=== PATIENT | female | born 1935 | race Caucasian/White ===

== ENCOUNTER 2024-06-15 09:11 | Emergency (ER) | payer MEDICARE, OTHER, SELFPAY ==
[2024-06-15 09:15] VITALS: BP 156/97
[2024-06-15 09:16] VITALS: BMI 30.6
[2024-06-15 09:20] LABS: Glucose - Point of Care 109 mg/dl (70-99)
--- NOTE | 2024-06-15 09:44 | ED.GENMED ---
History of Present Illness
General
Chief Complaint: Blood Sugar Problem
Source: patient and ambulance crew
Time Seen by Provider: 06/15/24 09:38
History of Present Illness
History of Present Illness:
89-year-old female with past medical history of diabetes managed with Lantus only at nighttime, hypertension presenting to the emergency department via EMS for evaluation after patient was found by family this morning very weak, last night was cold
and did not feel well, EMS found the patient's blood glucose to be 30 and provided her with an IV bolus of glucose as well as patient ate a peanut butter and jelly sandwich. Patient reports at time of my examination she feels much better and has no
current concerns. Patient denies any urinary symptoms, bowel changes, nausea, vomiting, chest pain, shortness of breath. She notes that she does not have a glucometer or monitor her blood sugars as she does not like pricking her fingers. Patient
is adamant her only insulin that she uses is the Lantus at nighttime. She reports she was at her primary care provider 2 weeks ago and yesterday states that they did not tell her about any complications with her diabetes.
Past History
Past History
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
ED Past Surgical History: Appendectomy, Gynecological and Orthopedic
Social History
Tobacco: Non-smoker
Alcohol: None
Drug: None
Personal:
Living: with family
Review of Systems
Review of Systems
All Other Systems: ROS reviewed and negative except as documented in HPI and ROS
Phy Exam
Physical Exam
Physical Exam:
GENERAL: Alert , in no apparent distress
HEAD: NCAT
EYE: conjunctiva clear
NECK: Supple
ENT: o/p clr, mmm.
CARDIAC: Regular rate and rhythm
LUNGS: Clear breath sounds bilaterally, no acute respiratory distress, no wheezes/rales/rhonchi
NEUROLOGICAL: Alert and oriented
SKIN: Warm and dry, skin intact.
MUSCULOSKELETAL: well perfused.
PSYCH: Normal and appropriate interaction.
Scores
Heart Failure Risk
Heart Failure Risk Score: Not Applicable
Heart Score for Chest Pain Patients
STEMI patient?: Not applicable
Withdrawal Assessment of Alcohol
Withdrawal Assessment Completed?: Not applicable
Course
Orders/Labs/Results
Orders:
Orders
06/15/24 09:32
Basic Metabolic Panel Urgent
Complete Blood Count/With Diff Urgent
Abnormal Lab Results
06/15/24 06/15/24 06/15/24
09:19 09:32 11:54
Lymphocytes % 17.3 L %
(20.5-51.1)
Sodium 127 L mmol/L
(135-145)
Chloride 95 L mmol/L
(98-107)
BUN 19 H mg/dl
(7-17)
Glucose 106 H mg/dl
(70-99)
POC Glucose 109 H mg/dl 128 H mg/dl
(70-99) (70-99)
06/15/24 09:32
06/15/24 09:32
Vital Signs
Initial and Last Documented VS:
Initial Vital Signs
Temp Pulse Resp BP Pulse Ox
97.7 F 72 16 156/97 98
06/15/24 09:15 06/15/24 09:15 06/15/24 09:15 06/15/24 09:15 06/15/24 09:15
Last Documented Vital Signs
Temp Pulse Resp BP Pulse Ox
97.7 F 74 23 156/97 97
06/15/24 09:15 06/15/24 11:45 06/15/24 11:45 06/15/24 09:15 06/15/24 11:45
MDM/Problems Addressed
Differential Diagnosis Includes:
Hypoglycemia secondary to insulin, less concern for infectious etiology, electrolyte disturbance
MDM/Problems Addressed:
89-year-old female presenting emergency department for evaluation of generalized weakness, found to be hypoglycemic by EMS, treated with glucose and peanut butter and jelly on the way to the hospital. Fingerstick here was 109 and patient is without
any specific complaints presently. I suspect her symptoms are most likely related to hypoglycemia secondary to her insulin. Will monitor patient in the ER. I did offer diabetes education consultation for possible glucometer or other monitoring
devices however patient seemed hesitant but states she would think about it back to us with her answer.
Chronic conditions affecting care: DM
Acute Exacerbation and/or Progression of Chronic Illness: DM
*Pulse Oximetry
Patient hypoxic: no
*Critical Care Note
Total Time (30-74mins, 75-104mins- exclusive of procedures): Not Applicable
Data Reviewed
Review of Other/Old Records Reveals: Labs
Patient Management
Escalation/DeEscalation of care consider admission/obs:
On multiple reevaluations patient continues to feel well, blood sugars remain greater than 100 and she is tolerating p.o. Patient's and daughter are at the bedside. Daughter was in contact with patient's primary care provider and they were
able to get patient a continuous glucose monitor which will be at their house later this afternoon. Primary care also decreased patient's Lantus from 70 units to 35 and will continue to follow-up with the patient. Family feels comfortable taking
the patient home. Aware of return precautions to the ER.
ED Attending Note
-
Portions of this chart may have been created with voice recognition software.� Occasional wrong word or��sound alike� substitutions may have occurred due to the inherent limitations of voice recognition software.
Discharge Plan
Departure
Patient Disposition: Home (Routine Discharge)
Date of Disposition: 06/15/24
Time of Disposition: 12:11
Patient with high blood pressure during this ER visit?: Yes
Discharge Problem:
Hypoglycemia due to insulin
Instructions: Low Blood Sugar, Adult ED
Prescriptions:
No Action
lisinopril [Zestril] 20 MG tablet
40 mg PO DAILY
simvastatin 20 MG tablet
20 mg PO QPM
levothyroxine 125 MCG tablet
125 mcg PO DAILY
hydrochlorothiazide [Microzide] 12.5 MG capsule
12.5 mg PO DAILY
insulin glargine [Lantus Solostar U-100 Insulin] 300 UNITS/3 ML insulin pen
68 units SC HS
acetaminophen 325 MG tablet
650 mg PO Q4HPRN PRN (Reason: pain)
magnesium hydroxide 30 ML suspension
30 ml PO DAILY PRN (Reason: constipation)
enoxaparin 40 MG/0.4 ML syringe
40 mg SQ DAILY
Referrals:
Kev Croft MD [Family Provider] -
Interventions
Interventions:
*Risk Screen - Suicide Last Done: 06/15/24 10:01
*General Assessment Last Done: 06/15/24 12:33
*Neglect/Abuse Screening Last Done: 06/15/24 10:01
ED- Fall Risk Assessment Last Done: 06/15/24 12:33
*ED COVID-19 Vaccine History Last Done: 06/15/24 09:16
*Nursing Disposition Last Done: 06/15/24 12:33
ED- Neurological Assessment Last Done: 06/15/24 10:00
Discharge Date and Time
Discharge Date/Time: 06/15/24 12:34
Print Language: K[place]IL[place]
[2024-06-15 09:46] LABS: % Basophils 0.4 % (0-2); % Eosinophils 0.5 % (0-6); % Immature Granulocytes 0.4 % (0-0.5); % Lymphocytes 17.3 % (20.5-51.1); % Monocytes 7.8 % (1.7-9.3); % Neutrophils 73.6 % (42.2-75.2); Absolute Lymphocytes 1.4 10^3/uL (1.2-3.4); Absolute Monocytes 0.6 10^3/uL (0.1-0.6); Absolute Neutrophils 5.8 10^3/uL (1.4-6.5); Hematocrit 41.4 % (37.0-47.0); Hemoglobin 14.4 g/dL (12.0-16.0); Mean Corp Hgb Conc. 34.8 g/dL (33.0-37.0); Mean Corpuscular Hgb 29.8 pg (27.0-31.0); Mean Corpuscular Volume 85.5 fL (81.0-99.0); Mean Platelet Volume 9.7 fL (7.4-10.4); Nucleated Red Blood Cells % 0 %; Platelet Count 228 10^3/uL (130-400); Red Blood Cell Count 4.84 10^6/uL (4.20-5.40); Red Cell Dist. Width 13.8 % (11.5-14.5); White Blood Cell Count 7.9 10^3/uL (4.8-10.8)
[2024-06-15 09:57] LABS: Blood Urea Nitrogen 19 mg/dl (7-17); Calcium 9.1 mg/dl (8.4-10.2); Carbon Dioxide 26 mmol/L (22-30); Chloride 95 mmol/L (98-107); Estimated Creatinine Clearance 68 ml/min; Glucose 106 mg/dl (70-99); Sodium 127 mmol/L (135-145); eGFR > 60.00
[2024-06-15 11:55] LABS: Glucose - Point of Care 128 mg/dl (70-99)
== END 2024-06-15 12:34 | disposition home or self-care (01) ==
LOC: EMR 09:11
PROVIDERS: EMERGENCY PHYSICIAN Student in an Organized Health Care Education/Training Program; FAMILY PHYSICIAN Internal Medicine
DX: E11.649 Type 2 diabetes mellitus with hypoglycemia without coma (principal); T38.3X5A Adverse effect of insulin and oral hypoglycemic [antidiabetic] drugs, initial encounter; Z79.4 Long term (current) use of insulin; I10 Essential (primary) hypertension
CPT/HCPCS: 99283; 80048; 82962; 85025

== ENCOUNTER 2024-06-18 08:38 | Emergency (ER) | payer MEDICARE, OTHER, SELFPAY ==
[2024-06-18 08:41] VITALS: BP 164/80
--- NOTE | 2024-06-18 09:51 | ED.GENMED ---
Addendum entered and electronically signed by Artem Mojica PA-C 06/21/24 11:53:
Urine culture positive, however clinical presentation not c/w UTI, likely asymptomatic bacteruria
Original Note:
History of Present Illness
<Mynor Juárez MD, Resident - Last Filed: 06/18/24 14:50>
General
Chief Complaint: Back Pain
Source: patient and family
Time Seen by Provider: 06/18/24 09:00
History of Present Illness
History of Present Illness:
89-year-old female, Ms. Cheryl Ro with past medical history of hypertension, hyperlipidemia, insulin-dependent diabetes mellitus, hypothyroidism presented to the ER reporting back pain and constipation. History is taken from the patient and
family (daughter and who accompanied her to the ER). Patient reports her back pain started 2 months ago, gradual in onset, was constant, sitting and lying down in supine position worsens the pain. Pain is better with walking and lying down
on the side. Her back pain has become worse in the past 10 days reports it as 10/10, she was taking prescription strength Tylenol without much help. Patient also reports having bilateral burning radiating pain down up to the feet. Patient reports
having lower extremity numbness occasionally and mild weakness but no tingling.
Patient reports having constipation since a couple of months, used to take [id number] Colace, MiraLAX and it has worsened over time. Patient mentions that she did not have a bowel movement from the past 18 days, but she was able to pass
flatus. Patient tried MiraLAX, Dulcolax, Fleet enemas without much help. Patient reports having decreased appetite, no nausea/vomiting/fever/chills/abdominal pain, no history of hematemesis, melena, blood in the stools. No history of
bladder/bowel incontinence, altered perianal sensation.
Past History
<Mynor Juárez MD, Resident - Last Filed: 06/18/24 14:50>
Past History
ED Past Medical History: HTN, IDDM and Hypothyroidism
ED Past Surgical History: Appendectomy, Gynecological (Hysterectomy and bilateral salpingo-oophorectomy) and Orthopedic
Social History
Tobacco: Non-smoker
Alcohol: None
Drug: None
Personal:
Living: with family
Employment: Retired
Phy Exam
<Mynor Juárez MD, Resident - Last Filed: 06/18/24 14:50>
Physical Exam
Physical Exam:
GEN: Patient is apprehensive due to pain
Eyes: PERRLA, EOMs intact, no scleral icterus
HENT: NCAT, oral mucosa moist, no JVD, no cervical adenopathy.
Lungs: CTAB, no wheezes, rales, rhonchi, normal chest wall excursion
Cardiac: RRR, no M/R/G, no peripheral edema. Radial pulses 2+ bilat
Abdomen: S, NT, ND, NABS, no masses or hepatosplenomegaly
Neuro: AO x 3, no focal deficits to BUE/BLE, normal sensation throughout
MSK: Swelling to the L knee from recent fall.
Skin: No rashes, petechiae. Normal color, no pallor or jaundice.
Psych: Calm, cooperative, proper hygiene
Course
<Mynor Juárez MD, Resident - Last Filed: 06/18/24 14:50>
Orders/Labs/Results
Orders:
Orders
06/18/24 10:06
CR Lumbar Spine Comp Min 4 Vw* Urgent
Comment:
Reason For Exam: trauma
06/18/24 10:07
Iohexol [Omnipaque] See Protocol PO NOW STA
06/18/24 10:08
CT Abd/pel W Iv And Oral Contr Urgent
Comment:
Reason For Exam: abdominal pain w distention
Dexamethasone Sod Phosphate [Decadron] 10 mg IV NOW STA
Ketorolac [Toradol] 15 mg IV NOW STA
06/18/24 11:00
Complete Blood Count/With Diff Urgent
Comprehensive Metabolic Panel Urgent
Magnesium Urgent
06/18/24 12:06
Urinalysis Reflex To Culture Urgent
Date Specimen was Collected: 06/18/24
Time Specimen was Collected: 12:04
Urine Microscopic Reflex Cult Urgent
Urine Culture Urgent
SASKIA Source: U
Specimen Description:
Date Specimen was Collected: 06/18/24
Time Specimen was Collected: 12:04
06/18/24 14:08
Magnesium Citrate [Citroma] 300 ml PO ONCE ONE
Abnormal Lab Results
06/18/24 06/18/24
11:00 12:06
Absolute Monos (auto) 0.8 H 10^3/uL
(0.1-0.6)
Lymphocytes % 20.4 L %
(20.5-51.1)
Sodium 127 L mmol/L
(135-145)
Chloride 91 L mmol/L
(98-107)
BUN 20 H mg/dl
(7-17)
Glucose 107 H mg/dl
(70-99)
Total Bilirubin 1.8 H mg/dl
(0.2-1.3)
Urine Ketones 2+ A
(Negative)
Leukocyte Esterase Rfl Trace A
(Negative)
Urine WBC (Reflex) 11-15 A /HPF
(0-5)
Urine Bacteria (Reflex) Many A
(Negative)
06/18/24 11:00
06/18/24 11:00
Vital Signs
Initial and Last Documented VS:
Initial Vital Signs
Temp Pulse Resp BP Pulse Ox
98.1 F 75 20 164/80 98
06/18/24 08:41 06/18/24 08:41 06/18/24 08:41 06/18/24 08:41 06/18/24 08:41
Last Documented Vital Signs
Temp Pulse Resp BP Pulse Ox
98.1 F 79 16 171/82 98
06/18/24 08:41 06/18/24 14:28 06/18/24 14:28 06/18/24 14:28 06/18/24 14:28
<Bernardo Moralez MD - Last Filed: 06/18/24 14:52>
Orders/Labs/Results
Orders:
Orders
06/18/24 10:06
CR Lumbar Spine Comp Min 4 Vw* Urgent
Comment:
Reason For Exam: trauma
06/18/24 10:07
Iohexol [Omnipaque] See Protocol PO NOW STA
06/18/24 10:08
CT Abd/pel W Iv And Oral Contr Urgent
Comment:
Reason For Exam: abdominal pain w distention
Dexamethasone Sod Phosphate [Decadron] 10 mg IV NOW STA
Ketorolac [Toradol] 15 mg IV NOW STA
06/18/24 11:00
Complete Blood Count/With Diff Urgent
Comprehensive Metabolic Panel Urgent
Magnesium Urgent
06/18/24 12:06
Urinalysis Reflex To Culture Urgent
Date Specimen was Collected: 06/18/24
Time Specimen was Collected: 12:04
Urine Microscopic Reflex Cult Urgent
Urine Culture Urgent
SAKSIA Source: U
Specimen Description:
Date Specimen was Collected: 06/18/24
Time Specimen was Collected: 12:04
06/18/24 14:08
Magnesium Citrate [Citroma] 300 ml PO ONCE ONE
Abnormal Lab Results
06/18/24 06/18/24
11:00 12:06
Absolute Monos (auto) 0.8 H 10^3/uL
(0.1-0.6)
Lymphocytes % 20.4 L %
(20.5-51.1)
Sodium 127 L mmol/L
(135-145)
Chloride 91 L mmol/L
(98-107)
BUN 20 H mg/dl
(7-17)
Glucose 107 H mg/dl
(70-99)
Total Bilirubin 1.8 H mg/dl
(0.2-1.3)
Urine Ketones 2+ A
(Negative)
Leukocyte Esterase Rfl Trace A
(Negative)
Urine WBC (Reflex) 11-15 A /HPF
(0-5)
Urine Bacteria (Reflex) Many A
(Negative)
06/18/24 11:00
06/18/24 11:00
Vital Signs
Initial and Last Documented VS:
Initial Vital Signs
Temp Pulse Resp BP Pulse Ox
98.1 F 75 20 164/80 98
06/18/24 08:41 06/18/24 08:41 06/18/24 08:41 06/18/24 08:41 06/18/24 08:41
Last Documented Vital Signs
Temp Pulse Resp BP Pulse Ox
98.1 F 79 16 171/82 98
06/18/24 08:41 06/18/24 14:28 06/18/24 14:28 06/18/24 14:28 06/18/24 14:28
<Mynor Juárez MD, Resident - Last Filed: 06/18/24 14:50>
*Critical Care Note
Total Time (30-74mins, 75-104mins- exclusive of procedures): Not Applicable
ED Attending Note
<Mynor Juárez MD, Resident - Last Filed: 06/18/24 14:50>
-
Portions of this chart may have been created with voice recognition software.� Occasional wrong word or��sound alike� substitutions may have occurred due to the inherent limitations of voice recognition software.
<Bernardo Moralez MD - Last Filed: 06/18/24 14:52>
ED Attending Note
Patient seen and examined by attending physician: Yes
ED Attending Note:
Patient presents to ED secondary to worsening lower back pain radiating down both legs over the past 2 weeks. Patient denies any pain at rest, but worse weightbearing and during ambulation. Denies fever or chills. Denies direct trauma. Denies
loss of sensation or weakness. Denies urinary or bowel incontinence. In addition, patient is reporting difficulty with bowel movements despite taking outpatient medications over the past 2 weeks. Denies abdominal pain however. Denies nausea or
vomiting. Denies recent change in medications or diet.
Patient with an unremarkable workup in ED, including blood work and CT scan, as well as x-ray. Otherwise, patient remains afebrile, hemodynamically stable, and neurologically intact. On repeat abdominal exam, abdomen is soft and nontender.
Patient will be discharged home with recommendation to increase fluid intake, diet modification, as well as outpatient medication, i.e. MiraLAX along with magnesium citrate.
Patient and family expressed understanding at time of discharge. Will return to ED with worsening symptoms.
Discharge Plan
Departure
Patient Disposition: Home (Routine Discharge)
Date of Disposition: 06/18/24
Time of Disposition: 14:09
Patient with high blood pressure during this ER visit?: Yes
Discharge Problem:
Back pain, Constipation
Instructions: Constipation, Adult (DC), Constipation, Adult ED
Prescriptions:
New
tramadol 50 mg tablet
50 mg PO Q8H PRN (Reason: Pain) Qty: 12 0RF
methylprednisolone [Medrol (Damon)] 4 mg tablets,dose pack
4 mg PO DAILY Qty: 21 0RF
No Action
lisinopril [Zestril] 20 MG tablet
40 mg PO DAILY
simvastatin 20 MG tablet
20 mg PO QPM
levothyroxine 125 MCG tablet
125 mcg PO DAILY
hydrochlorothiazide [Microzide] 12.5 MG capsule
12.5 mg PO DAILY
insulin glargine [Lantus Solostar U-100 Insulin] 300 UNITS/3 ML insulin pen
68 units SC HS
acetaminophen 325 MG tablet
650 mg PO Q4HPRN PRN (Reason: pain)
magnesium hydroxide 30 ML suspension
30 ml PO DAILY PRN (Reason: constipation)
enoxaparin 40 MG/0.4 ML syringe
40 mg SQ DAILY
Referrals:
Kev Croft MD [Family Provider] -
Activity Restrictions/Additional Instructions:
As discussed, please follow-up with your primary care physician for reevaluation. Your prescription has been sent electronically to [facility] pharmacy in [place]. Please consider return to ED with worsening symptoms.
Interventions
Interventions:
*Risk Screen - Suicide Last Done: 06/18/24 08:41
*General Assessment Last Done: 06/18/24 08:41
*Neglect/Abuse Screening Last Done: 06/18/24 08:41
*Nursing Disposition Last Done: 06/18/24 14:37
UJ-Gzijnc-Soyylomgcs Assessment Last Done: 06/18/24 09:09
ED-Musculoskeletal Assessment Last Done: 06/18/24 09:09
Discharge Date and Time
Discharge Date/Time: 06/18/24 14:37
Print Language: [place]
[2024-06-18] MEDS: DECADRON 10 MG IV (10:50)
[2024-06-18] MEDS: TORADOL 15 MG IV (10:50)
[2024-06-18] MEDS: OMNIPAQUE 50 ML PO (10:51)
[2024-06-18 11:06] LABS: % Basophils 0.7 % (0-2); % Eosinophils 1.4 % (0-6); % Immature Granulocytes 0.5 % (0-0.5); % Lymphocytes 20.4 % (20.5-51.1); % Monocytes 8.7 % (1.7-9.3); % Neutrophils 68.3 % (42.2-75.2); Absolute Basophils 0.1 10^3/uL (0-0.2); Absolute Eosinophils 0.1 10^3/uL (0-0.7); Absolute Lymphocytes 1.8 10^3/uL (1.2-3.4); Absolute Monocytes 0.8 10^3/uL (0.1-0.6); Absolute Neutrophils 5.9 10^3/uL (1.4-6.5); Hematocrit 38.7 % (37.0-47.0); Mean Corp Hgb Conc. 36.2 g/dL (33.0-37.0); Mean Corpuscular Hgb 30.2 pg (27.0-31.0); Mean Corpuscular Volume 83.6 fL (81.0-99.0); Mean Platelet Volume 9.9 fL (7.4-10.4); Nucleated Red Blood Cells % 0 %; Platelet Count 218 10^3/uL (130-400); Red Blood Cell Count 4.63 10^6/uL (4.20-5.40); Red Cell Dist. Width 13.7 % (11.5-14.5); White Blood Cell Count 8.6 10^3/uL (4.8-10.8)
[2024-06-18 11:23] LABS: ALT (SGPT) 33 U/L (0-35); AST (SGOT) 29 U/L (14-36); Albumin 4.7 g/dl (3.5-5.0); Alkaline Phosphatase 58 U/L (38-126); Blood Urea Nitrogen 20 mg/dl (7-17); Calcium 9.8 mg/dl (8.4-10.2); Carbon Dioxide 28 mmol/L (22-30); Chloride 91 mmol/L (98-107); Glucose 107 mg/dl (70-99); Magnesium 1.8 mg/dl (1.6-2.3); Potassium 4.8 mmol/L (3.5-5.1); Sodium 127 mmol/L (135-145); Total Bilirubin 1.8 mg/dl (0.2-1.3); Total Protein 6.9 g/dl (6.3-8.2); eGFR > 60.00
[2024-06-18 12:04] VITALS: BP 177/68
[2024-06-18 12:22] LABS: Urine Albumin Trace (Neg - Trace); Urine Bilirubin Negative (Negative); Urine Character Very Cloudy (Clear); Urine Color Yellow; Urine Glucose Negative (Negative); Urine Ketone 2+ (Negative); Urine Leukocyte Trace (Negative); Urine Nitrite Negative (Negative); Urine Occult Blood Negative (Negative); Urine Urobilinogen 1+ (Neg - 1+)
[2024-06-18 12:31] LABS: Urine Urothelial Cell 16-20 /LPF (FEW)
[2024-06-18 12:32] LABS: Urine Red Blood Cell 0-2 /HPF (0-2)
[2024-06-18 12:34] LABS: Urine Bacteria Many (Negative)
[2024-06-18] MEDS: CITROMA 300 ML PO (14:18)
[2024-06-18 14:28] VITALS: BP 171/82
== END 2024-06-18 14:37 | disposition home or self-care (01) ==
LOC: EMR 08:38
PROVIDERS: EMERGENCY PHYSICIAN Emergency Medicine; FAMILY PHYSICIAN Internal Medicine
DX: M54.9 Dorsalgia, unspecified (principal); K59.00 Constipation, unspecified; I10 Essential (primary) hypertension; E78.00 Pure hypercholesterolemia, unspecified; E11.9 Type 2 diabetes mellitus without complications; E03.9 Hypothyroidism, unspecified; Z90.49 Acquired absence of other specified parts of digestive tract; Z90.710 Acquired absence of both cervix and uterus; Z90.721 Acquired absence of ovaries, unilateral
CPT/HCPCS: 99284; 96374; 96375; 72110; 74177; 80053; 81003; 81015; 83735; 85025; 87077; 87086; 87186; Q9967

== ENCOUNTER 2025-03-23 19:16 | Inpatient (IN) | payer MEDICARE, OTHER, SELFPAY ==
[2025-03-23] VITALS (13 sets, daily range): BP systolic 119–192; BP diastolic 60–119
--- NOTE | 2025-03-23 16:40 | ED.CVA ---
History of Present Illness
General
Chief Complaint: CVA/TIA Symptoms
Source: patient
Exam Limitations: none
Time Seen by Provider: 03/23/25 16:38
Onset of Stroke Symptoms
Onset of symptoms known: No
Time pt last seen normal is known: Yes
Date last time pt seen normal: 03/22/25
History of Present Illness
History of Present Illness:
See MDM
Past History
Past History
ED Past Medical History: HTN, IDDM and Hypothyroidism
ED Past Surgical History: Appendectomy, Gynecological (Hysterectomy and bilateral salpingo-oophorectomy) and Orthopedic
Social History
Tobacco: Non-smoker
Alcohol: None
Drug: None
Personal:
Living: with family
Employment: Retired
Phy Exam
Physical Exam
Physical Exam:
See MDM
Scores
NIH Stroke Score
Level of Consciousness: 0 - Alert
LOC Questions: 1-Answers one correctly
LOC Commands: 1-Performs one correctly
Best Horizontal Gaze: 2-Total gaze palsy
Visual Fox: 0=Normal, no visual loss
Facial Palsy: 0=Normal, symmetrical
Motor - Right Arm: 0=No drift 10 seconds
Motor - Left Arm: 0=No drift 10 seconds
Motor - Right Le-No drift 5 seconds
Motor - Left Le-No drift 5 seconds
Limb Ataxia: 0-Absent
Sensation: 0-Normal
Best Language: 0-No aphasia
Dysarthria: 0-Normal
Extinction and Inattention: 0-No abnormality
Total Score:: 4
Course
Orders/Labs/Results
Orders:
Orders
03/23/25 16:38
CT HEAD STROKE ALERT W/o Cont Urgent
Comment:
Reason For Exam: headache, R gaze palsy
CT HEAD/NECK ANG STROKE ALERT Urgent
Comment:
Reason For Exam: Headache, R gaze palsy
03/23/25 16:40
Electrocardiogram (*1) Urgent
Reason for Study: TIA/Stroke
EKG- Treatment ONCE
03/23/25 16:43
Complete Blood Count/With Diff Urgent
Comprehensive Metabolic Panel Urgent
PTT Urgent
Prothrombin Time Urgent
Troponin I Urgent
03/23/25 17:00
NEUROLOGY CONSULT Urgent
Consulting Provider: Ricardo Davis
Was physician already notified: Yes
Lorazepam [Ativan] 1 mg IV NOW STA
03/23/25 17:07
Aspirin 300 mg RECTAL NOW STA
Abnormal Lab Results
03/23/25
16:43
WBC 11.8 H 10^3/uL
(4.8-10.8)
MPV 10.5 H fL
(7.4-10.4)
Abs Immat Gran (auto) 0.1 H 10^3/uL
(0-0.05)
Absolute Neuts (auto) 10.2 H 10^3/uL
(1.4-6.5)
Absolute Lymphs (auto) 1.0 L 10^3/uL
(1.2-3.4)
Immature Gran % 0.6 H %
(0-0.5)
Neutrophils % 86.1 H %
(42.2-75.2)
Lymphocytes % 8.8 L %
(20.5-51.1)
Chloride 94 L mmol/L
(98-107)
Glucose 244 H mg/dl
(70-99)
Total Bilirubin 1.6 H mg/dl
(0.2-1.3)
03/23/25 16:43
03/23/25 16:43
Vital Signs
Initial and Last Documented VS:
Initial Vital Signs
Temp Pulse Resp BP Pulse Ox
98.7 F 89 20 119/99 99
03/23/25 16:40 03/23/25 16:40 03/23/25 16:40 03/23/25 16:40 03/23/25 16:40
Last Documented Vital Signs
Temp Pulse Resp BP Pulse Ox
98.7 F 89 20 119/99 99
03/23/25 16:40 03/23/25 16:40 03/23/25 16:40 03/23/25 16:40 03/23/25 16:40
MDM/Problems Addressed
Differential Diagnosis Includes:
HPI and MDM Narrative:
89-year-old female presenting for evaluation of possible stroke alert. Patient has been complain of a headache since yesterday. She had a fall earlier today approximately 3.5 hours ago. On arrival, patient is flailing. She is not following
commands appropriately. She has a right gaze palsy. She is able to move all 4 extremities. No drift noted
Stroke alert called and patient brought directly to CT
Patient does not appear to be in the TNK window but is possibly in the window for IAT
Physical exam
General: Intermittently flailing her arms, appears disoriented
HEENT: protecting airway. Right gaze palsy
Neck: appears supple
CV: No evidence of cyanosis
Resp: No accessory muscle use
Abd: Non-distended
Extremities: No deformities. Moving all 4 extremities
Neuro: No dysarthria, no drift noted, right gaze palsy
Psych: Paranoid and scared
Skin: Intact
Problems Addressed including Acute and Chronic Conditions affecting care:
1. Headache
Acuity: acute
Prognosis: stable
Details: Will obtain CT to rule out bleed
2. Right gaze palsy
Acuity: acute
Prognosis: stable
Details: Stroke alert called
Updates
[address] head negative. At this point, neurology called and we discussed the case. CTA pending. Neurology suggesting CT perfusion but patient already received CT angiogram.
Radiology indicating no M1 or M2 occlusion. Will give rectal aspirin
Differential Diagnosis (but not limited to): Intracranial hemorrhage, stroke, seizure
Testing considered: Urinalysis
Drug therapy (if applicable): OTC meds, please see d/c instruction regarding Rx drugs
Amount and/or Complexity of Data Reviewed
Clinical info obtained from: Patient. EMS stating the fall was 3.5 hours ago
External data reviewed: N/A
Labs I independently reviewed (but not limited to): Sodium within normal limits
Radiology: The CT scan was personally and independently reviewed. In addition, official CT report reviewed.
Pulse Ox: not hypoxic
EKG independently reviewed: N/A
Mattress Inspector: Sinus rhythm
Critical Care: N/A
Risk of Complication:
Social Determinants of health: Good social support
Discussed with other providers: Radiologist, neurologist
Escalation of Care includes Admit/Obs: Given the concern for possible stroke, will give aspirin and admit. She is out of the TNK window
Occasional wrong word or 'sound a like' substitutions may have occurred due to the inherent limitations of voice recognition software. Read the chart carefully and recognize, using context, where substitutions have occurred.
*Critical Care Note
Total Time (30-74mins, 75-104mins- exclusive of procedures): Not Applicable
ED Attending Note
-
Portions of this chart may have been created with voice recognition software.� Occasional wrong word or��sound alike� substitutions may have occurred due to the inherent limitations of voice recognition software.
Discharge Plan
Departure
Patient Disposition: Admit
Date of Disposition: 03/23/25
Time of Disposition: 17:11
Admit to: Telemetry
Presentation/result/management discussed w/ accepting MD/DO: Hospitalist
Discharge Problem:
Stroke-like symptoms
Prescriptions:
No Action
lisinopril [Zestril] 20 MG tablet
40 mg PO DAILY
simvastatin 20 MG tablet
20 mg PO QPM
levothyroxine 125 MCG tablet
125 mcg PO DAILY
hydrochlorothiazide [Microzide] 12.5 MG capsule
12.5 mg PO DAILY
insulin glargine [Lantus Solostar U-100 Insulin] 300 UNITS/3 ML insulin pen
68 units SC HS
acetaminophen 325 MG tablet
650 mg PO Q4HPRN PRN (Reason: pain)
magnesium hydroxide 30 ML suspension
30 ml PO DAILY PRN (Reason: constipation)
enoxaparin 40 MG/0.4 ML syringe
40 mg SQ DAILY
tramadol 50 mg tablet
50 mg PO Q8H PRN (Reason: Pain) Qty: 12 0RF
methylprednisolone [Medrol (Damon)] 4 mg tablets,dose pack
4 mg PO DAILY Qty: 21 0RF
Interventions
Interventions:
*General Assessment Last Done: 03/23/25 16:40
*Neglect/Abuse Screening Last Done: 03/23/25 16:40
*ED- Fall Risk Assessment Last Done: 03/23/25 16:40
ED Swallowing Screen Last Done: 03/23/25 16:40
Discharge Date and Time
Print Language: KHMER
[2025-03-23 16:52] LABS: % Basophils 0.6 % (0-2); % Immature Granulocytes 0.6 % (0-0.5); % Lymphocytes 8.8 % (20.5-51.1); % Monocytes 3.9 % (1.7-9.3); % Neutrophils 86.1 % (42.2-75.2); Absolute Basophils 0.1 10^3/uL (0-0.2); Absolute Immature Granulocytes 0.1 10^3/uL (0-0.05); Absolute Monocytes 0.5 10^3/uL (0.1-0.6); Absolute Neutrophils 10.2 10^3/uL (1.4-6.5); Hematocrit 42.9 % (37.0-47.0); Hemoglobin 14.5 g/dL (12.0-16.0); Mean Corp Hgb Conc. 33.8 g/dL (33.0-37.0); Mean Corpuscular Hgb 29.4 pg (27.0-31.0); Mean Platelet Volume 10.5 fL (7.4-10.4); Nucleated Red Blood Cells % 0 %; Platelet Count 221 10^3/uL (130-400); Red Blood Cell Count 4.93 10^6/uL (4.20-5.40); Red Cell Dist. Width 13.2 % (11.5-14.5); White Blood Cell Count 11.8 10^3/uL (4.8-10.8)
[2025-03-23 17:05] LABS: INR 1.02; PT 13.7 Sec (11.4-14.6)
[2025-03-23 17:06] LABS: ALT (SGPT) 18 U/L (0-35); AST (SGOT) 22 U/L (14-36); Albumin 4.6 g/dl (3.5-5.0); Alkaline Phosphatase 54 U/L (38-126); Blood Urea Nitrogen 13 mg/dl (7-17); Calcium 9.7 mg/dl (8.4-10.2); Carbon Dioxide 30 mmol/L (22-30); Chloride 94 mmol/L (98-107); Glucose 244 mg/dl (70-99); Potassium 3.9 mmol/L (3.5-5.1); Sodium 135 mmol/L (135-145); Total Bilirubin 1.6 mg/dl (0.2-1.3); Total Protein 7.7 g/dl (6.3-8.2); eGFR > 60.00
[2025-03-23] MEDS: ATIVAN 1 MG IV (17:07)
[2025-03-23 17:19] LABS: Troponin I < 0.012 ng/ml
--- NOTE | 2025-03-23 17:32 | HPS.HSE ---
Family Physician
-
Family Physician: NOT KNOW UNKNOWN - PT DOES
Chief Complaint
-
Altered mental status
History of Present Illness
89F HTN HLD DM Hypothyroidism B/l Upper ext tracie placements for fracture 2017 recent left eye retinal detachment surgery a month ago p/w acute AMS progressive. Last known normal night prior to presentation. Patient unable to provide history. All
of history from records, reports, and patient's family (daughter Serenity and Reuben who live with her) at bedside. Per daughter, patient woke up feeling welling reporting right sided headache, became progressively confused as day
progressed, asking to go lie down in her bedroom when she was already in the bedroom. Patient was also reporting weakness, fear of falling, normally ambulates with cane at bedside. Witnessed fall on her left side when she tried to get up from bed.
While awaiting ambulance, patient could not recognize her . Confused/agitated, sedation was given en route to ED. In ED patient was reportedly flailing, right gaze palsy was noted, no following commands appropriately. Stroke alert called,
CT and CTA head/neck were obtained neg for acute intracranial abn's or significant stenosis/dissection/arterial abn. Patient was given 1 mg Ativan IV d/t agitation/confusion in ED. Not a TNK candidate per ED discussion with Neuro, rectal aspirin
was started.
Medical History
Past Medical History
Past Medical History: Reports Other (as above)
Past Surgical History: Reports Other (as above)
Social History
Unable to obtain full social history at this time due to: Patient Non-verbal
Family History
Family History: Not pertinent (reviewed)
Allergies / Home Medications
Allergies reflects when Allergies were last updated in [facility].
Home Medications with original date entered in [facility]
Allergy/Medication List:
Allergies
Allergy/AdvReac Type Severity Reaction Status Date / Time
codeine Allergy Tongue Verified 03/23/25 18:46
Swelling
Penicillins Allergy Tongue Verified 03/23/25 18:46
Swelling
Home Medications
insulin glargine 100 unit/mL (3 mL) subcutaneous pen (Lantus Solostar U-100 Insulin) 35 units SC HS 12/20/15
aspirin 81 mg tablet,delayed release 81 mg PO DAILY 03/23/25
lisinopril 40 mg tablet 40 mg PO DAILY 03/23/25
pioglitazone 45 mg tablet 45 mg PO DAILY 03/23/25
sitagliptin phosphate 100 mg tablet (Januvia) 100 mg PO DAILY 03/23/25
Review of Systems
-
Unable to obtain full review of systems at this time due to: Patient Non-verbal
Physical Exam
Vital Signs
Vital Signs
Temp Pulse Resp BP Pulse Ox
98.7 F 89 20 119/99 99
03/23/25 16:40 03/23/25 16:40 03/23/25 16:40 03/23/25 16:40 03/23/25 16:40
Physical Exam
General: Other (as below)
Laboratory Results
-
03/23/25 16:43
03/23/25 16:43
Laboratory Results
PT 13.7 Sec (11.4-14.6) 03/23/25 16:43
INR 1.02 03/23/25 16:43
APTT 25.0 Sec (23.4-35.0) 03/23/25 16:43
Total Bilirubin 1.6 mg/dl (0.2-1.3) H 03/23/25 16:43
AST 22 U/L (14-36) 03/23/25 16:43
ALT 18 U/L (0-35) 03/23/25 16:43
Alkaline Phosphatase 54 U/L (38-126) 03/23/25 16:43
Troponin I < 0.012 ng/ml 03/23/25 16:43
Impression/Plan
-
Physical Exam
General: No pallor, cyanosis, or jaundice.
HEENT: Pinpoint pupils b/l fixed gaze
NECK: Supple. No JVD Carotid Bruits
RESPIRATORY: Lungs clear to auscultation. No crackles wheezes stridor
CVS: S1, S2 normal. RRR. No murmur, rub or gallop.
ABDOMEN: Soft, non-tender. No distension. BS+/normal.
EXTREMITIES: No peripheral cyanosis or edema. Some rigidity noted upper and lower ext's. Upper ext's flexed at elbows b/l, lower ext's extended
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
IMPRESSION:
89F HTN HLD DM Hypothyroidism B/l Upper ext tracie placements for fractures 2017 recent left eye retinal detachment surgery a month ago p/w acute AMS progressive concerning for stroke.
PLAN:
#Acute Metabolic Encephalopathy
#Suspected Stroke
CT Head and CTA Head and Neck appreciated
CT Head noted signs of left eye retinal detachment (corresponds to patient's hx Lt Eye Retinal Detachment surgery a month ago)
Not a TNK or IAT candidate
NIH neurochecks
Brain MRI pending
Speech and Swallow eval
Physical/Occupational Therapy
Neuro Consult
Permissive HTN, Labetalol and hydralazine prn >220/120
Rectal ASA 300 mg daily, switch to 81 mg daily PO if/when able to tolerate PO
Fall Aspiration Sz precautions
check A1c Lipid Panel
Minimize use of sedating medications as possible
#DM
hold home PO diabetic medications for now
check Q6 FS while NPO
medium dose sliding scale
titrate insulin regimen as necessary
DVT ppx SCD
Full Code as per family (daughter Serenity and Reuben FENTON) at bedside
I spent a total of 80 minutes with the patient or on the floor. More than 50% of this time involved counseling and coordination of care.
[2025-03-23] MEDS: ASPIRIN 300 MG RECTAL (17:42)
[2025-03-23 18:12] LABS: Urine Albumin 2+ (Neg - Trace); Urine Bilirubin Negative (Negative); Urine Character Slightly Cloudy (Clear); Urine Color Yellow; Urine Glucose 3+ (Negative); Urine Ketone Negative (Negative); Urine Leukocyte Negative (Negative); Urine Nitrite Negative (Negative); Urine Occult Blood 1+ (Negative); Urine Urobilinogen Negative (Neg - 1+)
--- NOTE | 2025-03-23 19:15 | EDRN ---
Pt's daughter says pt complained of headache on R mandaeism yesterday. Pt took tylenol and went to bed. Pt woke this morning with the headache but it was not as bad as yesterday. Pt laid down today and when she got up, pt was 'off balance' and
throughout the day pt's legs got weaker and she had to be assisted to move and was unable to follow commands. Pt was shuffling her feet which is not normal for pt. Pt says pt used a portable bathroom to urinate. Daughter says pt had to go to the
bathroom and when she tried to get up, she was too weak and fel to the left. Daughter unable to get pt up which prompted daughter to call 911. Pt unable to provide any HPI as she has been sedated.
[2025-03-23 19:32] LABS: Urine Bacteria Many (Negative); Urine Red Blood Cell 0-2 /HPF (0-2); Urine Squamous Cell 0-2 /LPF (Few)
--- NOTE | 2025-03-23 19:42 | EDRN ---
Report was tubed to IMU - unable to take verbal report, will call back
[2025-03-23 19:49] LABS: TSH Reflex To Free T4 6.07 uIU/ml (0.47-4.68)
--- NOTE | 2025-03-23 19:49 | EDRN ---
Report given to Janny in IMU
[2025-03-23 20:18] LABS: Free T4 1.13 ng/dl (0.78-2.19)
[2025-03-23] MEDS: TYLENOL/FEVERALL 650 MG RECTAL (20:51)
[2025-03-23] MEDS: LEVAQUIN 100 IV (21:50)
[2025-03-23] MEDS: LR 1000 IV (21:50)
[2025-03-23 21:54] LABS: Glucose - Point of Care 250 mg/dl (70-99)
--- NOTE | 2025-03-23 22:00 | PTCARENOTE ---
Pt received to floor obtunded-received ativan in ED for CT scan and has been sedated since. . Placed into bed and placed on monitor. rectal temp 102. Pt does not open eyes to stimuli but does withdraw from pain. Is moving extremities. No verbal
response from pt. Pupils equal and reactive to light but sluggish. NIH very difficult to do due to sedation-19 at this time. 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 2 sets blood cultures and lactic done. tylenol suppository given. IV fluids and
antibiotics started.
[2025-03-23 22:27] LABS: Lactic Acid 1.9 mmol/L (0.7-2.0)
[2025-03-23] MEDS: NOVOLOG FLEXPEN-MODERATE RESISTANCE 5 UNITS SC (23:21)
[2025-03-23 23:31] LABS: Glucose - Point of Care 259 mg/dl (70-99)
[2025-03-24] VITALS (14 sets, daily range): BP systolic 136–190; BP diastolic 66–120; PULSE 87–88; O2SAT 98–99
[2025-03-24] MEDS: TYLENOL/FEVERALL 650 MG RECTAL (04:37)
[2025-03-24 05:19] LABS: Hematocrit 41.8 % (37.0-47.0); Hemoglobin 14.9 g/dL (12.0-16.0); Mean Corp Hgb Conc. 35.6 g/dL (33.0-37.0); Mean Corpuscular Hgb 30.2 pg (27.0-31.0); Mean Corpuscular Volume 84.6 fL (81.0-99.0); Mean Platelet Volume 10.8 fL (7.4-10.4); Platelet Count 226 10^3/uL (130-400); Red Blood Cell Count 4.94 10^6/uL (4.20-5.40); Red Cell Dist. Width 13.1 % (11.5-14.5); White Blood Cell Count 13.4 10^3/uL (4.8-10.8)
--- NOTE | 2025-03-24 05:37 | PTCARENOTE ---
Pt still very lethargic.Pt does try to open eyes to voice and says 'what' when I call her name. Does not follow commands but still moves all extremities and localizes pain. Med again with tylenol suppository for temp 101.2. Incont large amts urine
during the night.
[2025-03-24 05:44] LABS: ALT (SGPT) 15 U/L (0-35); AST (SGOT) 19 U/L (14-36); Albumin 4.3 g/dl (3.5-5.0); Alkaline Phosphatase 48 U/L (38-126); Blood Urea Nitrogen 13 mg/dl (7-17); Calcium 9.3 mg/dl (8.4-10.2); Carbon Dioxide 28 mmol/L (22-30); Chloride 91 mmol/L (98-107); Glucose 238 mg/dl (70-99); HDL Cholesterol 65 mg/dl; LDL Cholesterol, Calculated 166 mg/dl; Magnesium 1.4 mg/dl (1.6-2.3); Phosphorus 3.4 mg/dl (2.5-4.5); Potassium 3.8 mmol/L (3.5-5.1); Sodium 130 mmol/L (135-145); Total Bilirubin 2.1 mg/dl (0.2-1.3); Total Cholesterol 260 mg/dl (50-199); Triglyceride 146 mg/dl (10-149); Very Low Density Lipoprotein 29 mg/dl (0-30); eGFR > 60.00
[2025-03-24] MEDS: NOVOLOG FLEXPEN-MODERATE RESISTANCE 3 UNITS SC ×4 (05:57→23:41)
--- NOTE | 2025-03-24 07:55 | W.PN.HOSP.TC ---
Today's Communication/Plan
-
see a/p
Assessment / Plan
Assessment / Plan
Physical Exam
General: No pallor, cyanosis, or jaundice.
HEENT: Spontaneous eye movements, gaze no longer fixed, moist mucous membranes
NECK: Supple. No JVD Carotid Bruits
RESPIRATORY: Lungs clear to auscultation. No crackles wheezes stridor
CVS: S1, S2 normal. RRR. No murmur, rub or gallop.
ABDOMEN: Soft, non-tender. No distension. BS+/normal.
EXTREMITIES: No peripheral cyanosis or edema.
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
IMPRESSION:
89F HTN HLD DM Hypothyroidism B/l Upper ext tracie placements for fractures 2017 recent left eye retinal detachment surgery a month ago p/w acute AMS progressive concerning for stroke. Overnight following admission patient developed fever with
associate tachycardia tachypnea Leukocytosis concerning for possible sepsis, suspect aspiration pneumonia. Blood pressure stable, no significant lactic acidosis. Treated empirically with Levofloxacin and Flagyll given PCN allergy.
PLAN:
#Acute Metabolic Encephalopathy
#Suspected Stroke
#Hyperlipidemia
CT Head and CTA Head and Neck appreciated no acute intracranial abn's
CT Head noted signs of left eye retinal detachment (corresponds to patient's hx Lt Eye Retinal Detachment surgery a month ago)
Not a TNK or IAT candidate
NIH neurochecks
Brain MRI pending
Speech and Swallow eval
Physical/Occupational Therapy
Neuro Consult appreciated permissive HTN completed (prn Labetalol Hydralazine BP goals adjusted),
Rectal ASA 300 mg daily, switch to 81 mg daily PO if/when able to tolerate PO
Fall Aspiration Sz precautions
Lipid Panel noted elevated cholesterol LDL>70, start/cont statin when able to tolerate PO
Minimize use of sedating medications as possible
#Sepsis (Fever, Tachycardia, Tachypnea, Leukocytosis) unclear source suspect aspiration pna
hemodynamically stable, no significant lactic acidosis
follow blood cx's
urinalysis not suggestive UTI, follow urine cx
CXR noted no pna
cont empiric Levofloxacin Flagyll for now
#Acute Urinary Retention 800cc noted on bladder scan
Herron placed
monitor urine output
Eventual TOV when ambulatory/mental status improves
#Fall [employer], Left shoulder Pain
follow up CR Left Shoulder
#Vit B12 deficiency
received once IM B12 injection, start/Cont PO 1000 mcg BI2 daily when able to tolerate PO
#DM
updated A1c 8.2
hold home PO diabetic medications for now
check Q6 FS while NPO
medium dose sliding scale
Lantus 5U HS reduced from home dose d/t NPO
titrate insulin regimen as necessary
DVT ppx SCD
Full Code as per family (daughter Serenity and Reuben FENTON)
discussed with patient's daughter Serenity and PO Reuben
I spent a total of 50 minutes with the patient or on the floor. More than 50% of this time involved counseling and coordination of care.
Anticipated Discharge: > 48 hours
Subjective/Interval History
-
Date of Service: March 24, 2025
Mental status improved though remains largely nonverbal, prior rigidity ext's no longer seen. Spontaneous eye movements, gaze no longer fixed.
Objective Data
-
Labs:
Laboratory Results
03/24/25
04:56
WBC 13.4 H
Hgb 14.9
Hct 41.8
Plt Count 226
Sodium 130 L
Potassium 3.8
Chloride 91 L
Carbon Dioxide 28
BUN 13
Creatinine 0.6
Glucose 238 H
Calcium 9.3
Total Bilirubin 2.1 H
AST 19
ALT 15
Alkaline Phosphatase 48
Vital Signs:
Vital Signs
Temp Pulse Resp BP Pulse Ox
100.9 F H 98 29 169/83 98
03/24/25 07:20 03/24/25 06:00 03/24/25 06:00 03/24/25 06:00 03/24/25 06:00
I&O
03/23/25 03/24/25 03/25/25
06:59 06:59 06:59
Intake Total 660 / 660
Balance 660 / 660
--- NOTE | 2025-03-24 08:39 | CON.NEURO ---
Neuro Assessment/Plan
Assessment
Recurrent toxic metabolic encephalopathy suggested by similar symptoms in 2016 during an infection and current recurrence of symptoms including confusion and evidence of fever.
Differential diagnosis includes right hemispheric stroke producing left hemibody inattention. This is less likely based on the patient's recurrent symptomatology since 2016
Patient was not a candidate for either tenecteplase or intra-arterial thrombectomy due to symptoms not associated with stroke, and absence of clot for retrieval
Plan
Would at this time continue antiplatelet therapy
If MRI of brain fails to demonstrate acute ischemic lesion, discontinue both aspirin and clopidogrel as there is no clear etiology for need for same
Provide atorvastatin 40 mg to reduce LDL below 100 with the patient's current LDL of 166 and total cholesterol 260
Consider x-ray of left shoulder due to reported recurrent pain at time of injury (fall at time of admission)
Supportive measures for presumed infection
Avoid additional sedative medications
Consider rehabilitation evaluations based on MRI of brain results, specifically if there is evidence of acute ischemic stroke
Provide medical educational materials
Goal of normoglycemia
Goal of normotension
Will follow pending results
Consultation
Order
Date of Consultation: 03/24/25
Requesting Provider: Hospitalists
Reason for Consult: Change in mental status
Subjective/Objective
Subjective Data
Date of Service: March 24, 2025
Patient presented to this hospital's emergency department with change in mental status. The patient began experiencing right-sided headache leading to worsening confusion, according to medical records and discussion with claim review medical director. The
patient then had a witnessed fall after attempting to get out of bed and was increasingly confused and agitated. The patient was also described as having a right sided gaze palsy while in the emergency department and a stroke alert was initiated.
Due to the above symptoms, the patient was provided with sedative medication.
In 2016, according to medical records, the patient also had an episode of excessive fatigue, confusion upon awakening and right-sided headache. The patient was found to have a mild urinary tract infection at that time.
Of note is that the patient has not been driving for past 20 years, has not been performing her hobbies and is performing her activities of daily living without issue.
Objective Data
Vital Signs
Temp Pulse Resp BP Pulse Ox
38.3 C H 98 29 169/83 98
03/24/25 07:20 03/24/25 06:00 03/24/25 06:00 03/24/25 06:00 03/24/25 06:00
Lab Results
03/24/25 04:56
03/24/25 04:56
PT 13.7 Sec (11.4-14.6) 03/23/25 16:43
INR 1.02 03/23/25 16:43
APTT 25.0 Sec (23.4-35.0) 03/23/25 16:43
Sodium 130 mmol/L (135-145) L 03/24/25 04:56
Potassium 3.8 mmol/L (3.5-5.1) 03/24/25 04:56
BUN 13 mg/dl (7-17) 03/24/25 04:56
Glucose 238 mg/dl (70-99) H 03/24/25 04:56
Calcium 9.3 mg/dl (8.4-10.2) 03/24/25 04:56
Phosphorus 3.4 mg/dl (2.5-4.5) 03/24/25 04:56
LDL Cholesterol, Calc 166 mg/dl 03/24/25 04:56
Patient Allergies
codeine Allergy (Verified 03/23/25 18:46)
Tongue Swelling
Penicillins Allergy (Verified 03/23/25 18:46)
Tongue Swelling
Review of Systems
-
Unable to obtain full review of systems at this time due to: Lethargy
History Source: Patient
All other systems: Reviewed and negative
Physical Exam
-
General: No Apparent Distress and Appears Stated Age
Eyes: Round OU, [place] Conjunctivae and No Ptosis; Negative Able to visualize OU
HEENT: Anicteric and Moist Mucous Membranes
Neck: Full Range of Motion
Respiratory: No Dyspnea
Cardiac: No JVD
GI: Non-distended
Skin: Unremarkable
Extremities: No Clubbing, No Cyanosis and No Edema
Psych: Unable to Assess
Extended Neurological Exam
Mood & Affect: Unable to Assess
Attention Span & Concentration: Awake, Unable to Perform 2 Step Request and Other (Unable to perform most single step requests); Negative Alert or Interactive
Memory: Unable to Assess
Tremor: Hand Tremor Absent and Head Tremor Absent
Involuntary Movement: None
Speech: Severely Reduced Output and Dysarthric
Cranial Nerve II: Left Eye: Pupillary Reactivity Unremarkable, Pupillary Size Unremarkable and Unable to Assess Visual Fox
Cranial Nerve II: Right Eye: Pupillary Reactivity Unremarkable, Pupillary Size Unremarkable and Unable to Assess Visual Fox
Cranial Nerves III, IV, : Extraocular Movement: Unable to Assess
Cranial Nerve VII: Facial Symmetry: Normal Facial Symmetry
Cranial Nerve VIII: Hearing: Unremarkable Hearing to Normal Conversational Volume
Cranial Nerves IX, X: Palate Movement: Unable to Assess
Cranial Nerve XI: Shoulder Shrug: Unable to Assess
Cranial Nerve XII: Tongue Protusion: Unable to Assess
Muscle Strength, Overall: Spontaneously Moves (All extremities)
Muscle Bulk & Tone: Bulk Unremarkable and Tone Unremarkable
Pronator Drift: Unable to Assess
Deep Tendon Reflexes: Absent Throughout
Cold Sensation: Unable to Assess
Vibration Sensation: Unable to Assess
Touch Sensation: Withdrawal to Pain (On right side, not on the left)
Coordination: Unable to Assess
Babinski Sign: Absent Bilaterally
Gait & Station: Unable to Assess
Data Reviewed
-
CT-A: Report Reviewed
CT Head: Report Reviewed
MRI Head: Ordered and Pending
Labs: Report Reviewed
Lipid Profile: Report Reviewed
Reviewed with: Physician and Patient
Old Records: Summarized
Medications
-
Active Medications
Generic Name Dose Route Start Last Admin
Trade Name Freq PRN Reason Stop Dose Admin
Acetaminophen 650 mg 03/23/25 20:03 03/24/25 04:37
Acetaminophen 650 Mg Rectal Suppository RECTAL 04/20/25 20:02 650 mg
Q4HPRN PRN Administration
ARCHULETA, mild pain, or temp >100.4F
Acetaminophen 650 mg 03/23/25 20:03
Acetaminophen 325 Mg Tablet PO 04/20/25 20:02
Q4HPRN PRN
ARCHULETA, mild pain, or temp >100.4F
Aspirin 300 mg 03/24/25 08:00
Aspirin 300 Mg Rectal Suppository RECTAL 04/21/25 07:59
DAILY JOAN
Dextrose 12.5 grams 03/23/25 20:03
Dextrose 50% (0.5 Grams/Ml) 50 Ml Syringe IV 04/20/25 20:02
[id number] PRN
hypoglycemia
Protocol
Glucagon 1 mg 03/23/25 20:03
Glucagon 1 Mg Vial IM 04/20/25 20:02
PRN PRN
hypoglycemia
Protocol
Hydralazine HCl 5 mg 03/23/25 20:03
Hydralazine 20 Mg/Ml Vial IV 04/20/25 20:02
Q4HPRN PRN
SBP>220 or DBP>120
Lactated Ringer's 1,000 mls @ 80 mls/hr 03/23/25 22:00 03/23/25 21:50
Lr IV 1,000 mls
.[id number] JOAN Administration
Magnesium Sulfate 4 gram in 100 mls @ 25 mls/hr 03/24/25 08:00
Magnesium Sulfate IV 03/24/25 11:59
NOW STA
Levofloxacin/Dextrose 750 mg in 150 mls @ 100 mls/hr 03/24/25 22:00
Levaquin IV
Q24H JOAN
Metronidazole 100 mls @ 100 mls/hr 03/24/25 10:00
Flagyl 500 Mg IV
Q8H JOAN
Insulin Aspart 0 units 03/24/25 00:00 03/24/25 05:57
Insulin Aspart Moderate Resistance 300 Units/3 Ml Pen.Injctr SC 04/21/25 00:00 3 units
Q6 JOAN Administration
Protocol
Labetalol HCl 10 mg 03/23/25 20:03
Labetalol Hcl 5 Mg/1 Ml (20 Mg/4 Ml) Injection IV 04/20/25 20:02
Q6HPRN PRN
SBP>220 or DBP>120
Sodium Chloride 0 flush 03/23/25 21:00
Sodium Chloride 0.9% (Flush) Syringe IV 04/20/25 20:59
PER PROTOCOL JOAN
Home Medications
�Medication �Instructions �Recorded
insulin glargine 100 unit/mL (3 35 units SC HS Diabetes 12/20/15
mL) subcutaneous pen (Lantus
Solostar U-100 Insulin)
aspirin 81 mg tablet,delayed 81 mg PO DAILY Blood Clot 03/23/25
release Prevention/Tx
lisinopril 40 mg tablet 40 mg PO DAILY Blood Pressure 03/23/25
pioglitazone 45 mg tablet 45 mg PO DAILY Diabetes 03/23/25
sitagliptin phosphate 100 mg 100 mg PO DAILY Diabetes 03/23/25
tablet (Januvia)
Past History
Past History
ED Past Medical History: HTN, NIDDM, Hypothyroidism and Other (Left eye retinal detachment)
ED Past Surgical History: Appendectomy, Gynecological (Hysterectomy and bilateral salpingo-oophorectomy) and Orthopedic (ORIF)
Social History
Tobacco: Non-smoker
Alcohol: None
Drug: None
Personal:
Living: with family
Employment: Retired
Family History
Family History: Other (reviewed and non-contributory)
[2025-03-24] MEDS: MAGNESIUM SULFATE 100 IV (08:45)
[2025-03-24] MEDS: ASPIRIN 300 MG RECTAL (09:02)
[2025-03-24] MEDS: OFIRMEV 100 IV (09:48)
[2025-03-24] MEDS: FLAGYL 500 MG 100 IV ×2 (09:54→18:02)
[2025-03-24 10:30] LABS: COVID-19 Antigen Negative (Negative)
[2025-03-24 10:52] LABS: Glycohemoglobin (HgbA1c) 8.2 % (4.0-5.6)
[2025-03-24 10:58] LABS: Glucose - Point of Care 220 mg/dl (70-99)
[2025-03-24 12:07] LABS: Glucose - Point of Care 211 mg/dl (70-99)
[2025-03-24 12:28] LABS: Vitamin B12 230 pg/ml (239-931)
[2025-03-24] MEDS: LR 1000 IV (16:04)
[2025-03-24 17:57] LABS: Glucose - Point of Care 202 mg/dl (70-99)
[2025-03-24] MEDS: CYANOCOBALAMIN 1000 MCG IM (18:01)
[2025-03-24] MEDS: LIPITOR PO (18:02)
[2025-03-24] MEDS: TRANDATE 10 MG IV (20:36)
--- NOTE | 2025-03-24 21:32 | PTCARENOTE ---
Pt received lethargic. Awakens briefly at times but falls back to sleep immediately. Unable to stay awake to do proper NIH assessment. Moves all extremities and turns self in bed. Assessment as charted. Daughter at bedside. Med with labetolol for
elevated BP.
[2025-03-24] MEDS: LEVAQUIN 150 IV (21:46)
[2025-03-24] MEDS: COMPAZINE 10 MG IV (23:40)
[2025-03-24 23:47] LABS: Glucose - Point of Care 221 mg/dl (70-99)
[2025-03-25] VITALS (14 sets, daily range): BP systolic 103–170; BP diastolic 44–131
--- NOTE | 2025-03-25 00:08 | PTCARENOTE ---
Pt awake for short time and c/o nausea. Disoriented to time and place. Asked pt if she knew how old she was and she said ' I don't know and I don't care'. Steve MORRISON notified and pt med with compazine IV.
[2025-03-25] MEDS: FLAGYL 500 MG 100 IV ×3 (02:21→17:52)
[2025-03-25] MEDS: LANTUS 0.05 UNITS SC ×2 (02:31→23:06)
[2025-03-25] MEDS: LR 1000 IV ×2 (05:17→17:49)
[2025-03-25 05:28] LABS: Hematocrit 37.3 % (37.0-47.0); Hemoglobin 12.8 g/dL (12.0-16.0); Mean Corp Hgb Conc. 34.3 g/dL (33.0-37.0); Mean Corpuscular Hgb 29.2 pg (27.0-31.0); Mean Corpuscular Volume 85.2 fL (81.0-99.0); Mean Platelet Volume 10.5 fL (7.4-10.4); Platelet Count 188 10^3/uL (130-400); Red Blood Cell Count 4.38 10^6/uL (4.20-5.40); Red Cell Dist. Width 12.8 % (11.5-14.5); White Blood Cell Count 11.6 10^3/uL (4.8-10.8)
--- NOTE | 2025-03-25 05:29 | PTCARENOTE ---
Has more periods of being awake but remains confused. Continue to monitor.
[2025-03-25 05:53] LABS: Blood Urea Nitrogen 23 mg/dl (7-17); Calcium 8.9 mg/dl (8.4-10.2); Carbon Dioxide 29 mmol/L (22-30); Chloride 92 mmol/L (98-107); Glucose 205 mg/dl (70-99); Phosphorus 3.2 mg/dl (2.5-4.5); Potassium 3.5 mmol/L (3.5-5.1); Sodium 128 mmol/L (135-145); eGFR > 60.00
[2025-03-25] MEDS: NOVOLOG FLEXPEN-MODERATE RESISTANCE 3 UNITS SC ×2 (06:12→12:19)
--- NOTE | 2025-03-25 07:12 | W.PN.NEURO.1 ---
Today's Communication / Plan
-
.
Subjective/Objective
Subjective Data
Date of Service: March 25, 2025
Neurology follow-up note.
HPI: this is an 89-year-old woman who presented to the [facility] on March 23, 2025 with fever and encephalopathy.
According to patient's son Ms. Perez has had forgetfulness for the past five years. She commonly forgets names and requires assistance with medication management.
Prior to admission, the patient was still able to cook. She has not driven since 2019, approximately six years ago. There is no history of seizures, stroke or family history of dementia.
The patient was started on Levaquin and Flagyl
ER VS: 119/99, 89, 37.1�38.9 C
EKst degree of AVB, QTc Int : 440 ms
PDMP:no recently prescribed meds.
Labs: WBCs�11.8, glucose�244, magnesium�1.4, sodium�135-128, hemoglobin A1c�8.2, total bili�1.6, LDL�166, normal free T4, UA�positive for 3+ glucose, 2+ albumin, bacteria
SARS-COv 2-neg.
CT head wo contrast-no acute abnormalities, left orbital globe slightly smaller in size than the right and marked increase attenuation of the vitreous of the left globe new in the interval since prior study. Findings could be the sequela of trauma
including retinal detachment.
CTA head/neck- no stenoses or dissection.
CXR-no evidence of pneumonia or congestive heart failure.
PMH: bladder cancer in the 1980s, L retinal detachment, HTN, DLP, DM, colonic diverticulosis
PSH KIERAN BSO, left humeral ORIF, L vitrectomy
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 Completed high school.
FH: Noncontributory.
All: Codeine, penicillin
ROS: Negative for headache, change in vision or strength.
General: Well developed. In no acute distress.
Cardio: Regular rate and rhythm. Extremities are without cyanosis or edema.
Neuro:
Mental Status: Somnolent, awakens with verbal and tactile stimulation. Poor attention. Follows simple requests consistently. Oriented to name, person. Nonfluent. No hemineglect.
Cranial Nerves: Pupils are equally round and reactive to light. EOMs full. Blinks to threat bilaterally. No ptosis. No nystagmus. Face symmetric. Impaired hearing AU. The palate elevated well. SCMs and traps 5/5. Tongue midline. No
dysarthria.
Motor: Increased motor tone in lower extremities. Moves all limbs antigravity symmetrically purposefully.
Reflexes: Bilateral grasp
Sensory: Limited exam due to poor attention
Coordination: No tremors myoclonic movement
Gait: deferred
Assessment and Plan:
I. Multifactorial encephalopathy (infectious, vascular, metabolic, neurodegenerative)
II. Sepsis on empiric Levofloxacin Flagyll
III. Vitamin B12 deficiency
-Continue telemetry monitoring
-Strict glycemic and blood pressure control
-Follow-up brain MRI
-DVT prophylaxis.
I personally reviewed all radiology and labs along with past medical records pertinent to current medical problems. Total time spent in patient care is 60 minutes.
Thank you for allowing us to participate in the care of this patient. We will continue to follow. Please do not hesitate to contact us with any questions or concerns.
Objective Data
Vital Signs
Temp Pulse Resp BP Pulse Ox
37.1 C 82 20 114/58 97
03/25/25 03:00 03/25/25 06:00 03/25/25 06:00 03/25/25 06:00 03/25/25 06:00
Lab Results
03/25/25 05:13
03/25/25 05:13
PT 13.7 Sec (11.4-14.6) 03/23/25 16:43
INR 1.02 03/23/25 16:43
APTT 25.0 Sec (23.4-35.0) 03/23/25 16:43
Sodium 128 mmol/L (135-145) L 03/25/25 05:13
Potassium 3.5 mmol/L (3.5-5.1) 03/25/25 05:13
BUN 23 mg/dl (7-17) H 03/25/25 05:13
Glucose 205 mg/dl (70-99) H 03/25/25 05:13
Calcium 8.9 mg/dl (8.4-10.2) 03/25/25 05:13
Phosphorus 3.2 mg/dl (2.5-4.5) 03/25/25 05:13
LDL Cholesterol, Calc 166 mg/dl 03/24/25 04:56
Vitamin B12 230 pg/ml (239-931) L 03/24/25 04:56
Patient Allergies
codeine Allergy (Verified 03/23/25 18:46)
Tongue Swelling
Penicillins Allergy (Verified 03/23/25 18:46)
Tongue Swelling
Vital Signs and Labs
-
Vital Signs and Labs:
Vital Signs
Temp Pulse Resp BP Pulse Ox
37.1 C 82 20 114/58 97
03/25/25 03:00 03/25/25 06:00 03/25/25 06:00 03/25/25 06:00 03/25/25 06:00
Lab Results
03/25/25 05:13
03/25/25 05:13
PT 13.7 Sec (11.4-14.6) 03/23/25 16:43
INR 1.02 03/23/25 16:43
APTT 25.0 Sec (23.4-35.0) 03/23/25 16:43
Sodium 128 mmol/L (135-145) L 03/25/25 05:13
Potassium 3.5 mmol/L (3.5-5.1) 03/25/25 05:13
BUN 23 mg/dl (7-17) H 03/25/25 05:13
Glucose 205 mg/dl (70-99) H 03/25/25 05:13
Calcium 8.9 mg/dl (8.4-10.2) 03/25/25 05:13
Phosphorus 3.2 mg/dl (2.5-4.5) 03/25/25 05:13
LDL Cholesterol, Calc 166 mg/dl 03/24/25 04:56
Vitamin B12 230 pg/ml (239-931) L 03/24/25 04:56
Medications
-
Medications:
Generic Name Dose Route Start Last Admin
Trade Name Freq PRN Reason Stop Dose Admin
Acetaminophen 650 mg 03/23/25 20:03 03/24/25 04:37
Acetaminophen 650 Mg Rectal Suppository RECTAL 04/20/25 20:02 650 mg
Q4HPRN PRN Administration
ARCHULETA, mild pain, or temp >100.4F
Acetaminophen 650 mg 03/23/25 20:03
Acetaminophen 325 Mg Tablet PO 04/20/25 20:02
Q4HPRN PRN
ARCHULETA, mild pain, or temp >100.4F
Aspirin 300 mg 03/24/25 08:00 03/25/25 08:48
Aspirin 300 Mg Rectal Suppository RECTAL 04/21/25 07:59 300 mg
DAILY JOAN Administration
Atorvastatin Calcium 40 mg 03/24/25 18:00 03/24/25 18:02
Atorvastatin (Lipitor) 40 Mg Tablet PO 04/21/25 17:59 Not Given
QPM JOAN
Cyanocobalamin 1,000 mcg 03/25/25 08:00 03/25/25 08:48
Cyanocobalamin 1,000 Mcg Tablet PO 04/22/25 07:59 Not Given
DAILY JOAN
Dextrose 12.5 grams 03/23/25 20:03
Dextrose 50% (0.5 Grams/Ml) 50 Ml Syringe IV 04/20/25 20:02
[id number] PRN
hypoglycemia
Protocol
Glucagon 1 mg 03/23/25 20:03
Glucagon 1 Mg Vial IM 04/20/25 20:02
PRN PRN
hypoglycemia
Protocol
Hydralazine HCl 5 mg 03/24/25 15:14
Hydralazine 20 Mg/Ml Vial IV 04/20/25 20:02
Q4HPRN PRN
SBP>140 or DBP>100
Lactated Ringer's 1,000 mls @ 80 mls/hr 03/23/25 22:00 03/25/25 05:17
Lr IV 1,000 mls
[id number] JOAN Administration
Levofloxacin/Dextrose 750 mg in 150 mls @ 100 mls/hr 03/24/25 22:00 03/24/25 21:46
Levaquin IV 150 mls
Q24H JOAN Administration
Metronidazole 100 mls @ 100 mls/hr 03/24/25 10:00 03/25/25 02:21
Flagyl 500 Mg IV 100 mls
Q8H JOAN Administration
Insulin Glargine 5 units/ 0.05 mls @ 0 mls/hr 03/25/25 22:00
Device SC 04/22/25 21:59
HS JOAN
As Directed
Insulin Aspart 0 units 03/24/25 00:00 03/25/25 06:12
Insulin Aspart Moderate Resistance 300 Units/3 Ml Pen.Injctr SC 04/21/25 00:00 3 units
Q6 JOAN Administration
Protocol
Labetalol HCl 10 mg 03/24/25 15:14 03/24/25 20:36
Labetalol Hcl 5 Mg/1 Ml (20 Mg/4 Ml) Injection IV 04/20/25 20:02 10 mg
Q6HPRN PRN Administration
SBP>140 or DBP>100
Prochlorperazine Edisylate 10 mg 03/24/25 23:34 03/24/25 23:40
Prochlorperazine 10 Mg/2 Ml Vial IV 04/21/25 23:33 10 mg
Q6HPRN PRN Administration
n/v
Sodium Chloride 0 flush 03/23/25 21:00
Sodium Chloride 0.9% (Flush) Syringe IV 04/20/25 20:59
PER PROTOCOL JOAN
Home Medications
-
Home Medications
insulin glargine 100 unit/mL (3 mL) subcutaneous pen (Lantus Solostar U-100 Insulin) 35 units SC HS Diabetes 12/20/15
aspirin 81 mg tablet,delayed release 81 mg PO DAILY Blood Clot Prevention/Tx 03/23/25
lisinopril 40 mg tablet 40 mg PO DAILY Blood Pressure 03/23/25
pioglitazone 45 mg tablet 45 mg PO DAILY Diabetes 03/23/25
sitagliptin phosphate 100 mg tablet (Januvia) 100 mg PO DAILY Diabetes 03/23/25
[2025-03-25] MEDS: ASPIRIN 300 MG RECTAL (08:48)
[2025-03-25] MEDS: VITAMIN B-12 PO (08:48)
[2025-03-25 12:00] LABS: Glucose - Point of Care 206 mg/dl (70-99)
[2025-03-25] MEDS: TYLENOL 650 MG PO (12:17)
--- NOTE | 2025-03-25 13:48 | PTOTSP ---
Dysphagia Eval
Patient is an 89 year old female admitted with TME vs CVA and concern for aspiration PNA. Patient with oral/pharyngeal dysphagia exacerbated by AMS (admit w/ TME vs CVA) and lethargy. Acute aspiration risk elevated.
Recommend:
1. NPO - consider temporary non-oral means of nutrition
2. Aspiration Risk Hydration Protocol - hold due to decreased SHARIF/AMS
3. Oral care 3x daily
4. Dysphagia re-evaluation at the acute care level
5. Speech/language/cognitive evaluation pending results of MRI of Brain
--- NOTE | 2025-03-25 17:34 | CM ---
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 O2 2L. Receiving IVF, IV Abx. MRI pending. [facility] recommended NPO. PT/OT; assist of 2, recommendation TBD.
Met with patient and daughter Sterling;
Patient appeared sleeping and awakened occasionally attempting to remove oximetry device from finger.
the patient resides with her and daughter Sterling in daughter's split level house (no NICOLE, 4 + 4 stairs to bedroom).
The patient was A/O at home, independent in ADLs and ambulation, using her SPC when out.
Daughter relays that patient fell on Sat 5/3.
[facility]
PCP - Rickey Croft
Pharmacy - [facility]
Daughter volunteers that she is aware that her mother will need rehab before returning home. She is hoping her mother can go to either [facility] SNF or [facility] SNF. Patient will need recommendation from PT/OT before CM can make referral
for rehab.
Plan continue to follow patient's progress with mentation, diet and mobility.
Plan probable SNF referrals as above.
--- NOTE | 2025-03-25 17:43 | W.PN.HOSP.TC ---
Today's Communication/Plan
-
Assessment / Plan
Assessment / Plan
NAD
Scleral Anicteric
MMM
No JVD
CTABL
RRR, S1/S2
Soft, NT, ND, BS+
Warm, Dry
AAOx2 person place
Calm
Acute encephalopathy being toxic versus metabolic (aspiration pneumonia/UTI versus dehydration/urinary retention/hyponatremia) or CVA.
MRI pending
Neurology following
Continue aspirin and statin
Avoid sedating agents
Was started on IV antibiotics for concern of aspiration pneumonia.
- Unclear if the antibiotics helped or IV fluids help to improve mental status
- Therefore at this time we will continue fluids and antibiotics
Hyponatremia and hypochloremia
Likely secondary to poor p.o. intake
Will initiate 0.9 normal saline rate of 100 cc/h
Repeat BMP in the a.m.
If not improving obtain urine electrolytes
Sepsis with unclear source but likely suspecting aspiration pneumonia versus UTI as urine analysis shows many bacteria but normal WBC negative bacteria and nitrates
Urine culture now growing GNR's
Will continue levofloxacin to cover for UTI and Flagyl to cover for anaerobes therefore both levofloxacin and Flagyl will cover for aspiration pneumonia treat for 7-day course
Acute Urinary Retention 800cc noted on bladder scan
Herron placed
monitor urine output
Eventual TOV when ambulatory/mental status improves
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
Left shoulder x-ray without acute finding
Vitamin B12 deficiency
Continue supplementation
DM
updated A1c 8.2
hold home PO diabetic medications for now
check Q6 FS while NPO
medium dose sliding scale
Lantus 5U HS reduced from home dose d/t NPO
titrate insulin regimen as necessary
Awaiting speech therapy
Hypoglycemia protocol
Anticipated Discharge: > 48 hours
Subjective/Interval History
-
Date of Service: March 25, 2025
Seen and examined. Son at bedside. States that his mom seems to be closer to her baseline. She is able to tell me where she is and who she is. States that it is normal for her not to know the year.
Objective Data
-
Labs:
Laboratory Results
03/25/25
05:13
Sodium 128 L
Potassium 3.5
Chloride 92 L
Carbon Dioxide 29
BUN 23 H
Creatinine 0.7
Glucose 205 H
Calcium 8.9
Vital Signs:
Vital Signs
Temp Pulse Resp BP Pulse Ox
98.9 F 67 23 152/64 89
03/25/25 07:35 03/25/25 14:00 03/25/25 14:00 03/25/25 14:00 03/25/25 14:00
I&O
03/24/25 03/25/25 03/26/25
06:59 06:59 06:59
Intake Total 660 / 660 1250 / 1250
Output Total 1350 / 1350
Balance 660 / 660 -100 / -100
[2025-03-25] MEDS: LIPITOR PO (17:45)
[2025-03-25] MEDS: NOVOLOG FLEXPEN-MODERATE RESISTANCE 1 UNITS SC (17:59)
[2025-03-25 18:08] LABS: Glucose - Point of Care 191 mg/dl (70-99)
[2025-03-25] MEDS: LEVAQUIN 150 IV (23:06)
[2025-03-25 23:08] LABS: Glucose - Point of Care 182 mg/dl (70-99)
[2025-03-26] VITALS (19 sets, daily range): BP systolic 96–207; BP diastolic 65–108
[2025-03-26 02:30] LABS: Glucose - Point of Care 173 mg/dl (70-99)
[2025-03-26] MEDS: TRANDATE 10 MG IV ×3 (02:37→21:51)
[2025-03-26] MEDS: FLAGYL 500 MG 100 IV ×3 (02:37→18:11)
[2025-03-26] MEDS: NOVOLOG FLEXPEN-MODERATE RESISTANCE 1 UNITS SC ×4 (02:38→18:11)
[2025-03-26 06:31] LABS: Hematocrit 36.5 % (37.0-47.0); Hemoglobin 12.8 g/dL (12.0-16.0); Mean Corp Hgb Conc. 35.1 g/dL (33.0-37.0); Mean Corpuscular Hgb 29.8 pg (27.0-31.0); Mean Corpuscular Volume 84.9 fL (81.0-99.0); Mean Platelet Volume 10.5 fL (7.4-10.4); Platelet Count 191 10^3/uL (130-400); Red Cell Dist. Width 12.9 % (11.5-14.5); White Blood Cell Count 8.9 10^3/uL (4.8-10.8)
[2025-03-26 06:49] LABS: Blood Urea Nitrogen 17 mg/dl (7-17); Carbon Dioxide 27 mmol/L (22-30); Chloride 99 mmol/L (98-107); Glucose 193 mg/dl (70-99); Magnesium 1.8 mg/dl (1.6-2.3); Potassium 3.5 mmol/L (3.5-5.1); Sodium 136 mmol/L (135-145); eGFR > 60.00
--- NOTE | 2025-03-26 07:16 | W.PN.NEURO.1 ---
Today's Communication / Plan
-
.
Neuro Assessment/Plan
Assessment
Recurrent toxic metabolic encephalopathy suggested by similar symptoms in 2016 during an infection and current recurrence of symptoms including confusion and evidence of fever.
Differential diagnosis includes right hemispheric stroke producing left hemibody inattention. This is less likely based on the patient's recurrent symptomatology since 2016
Patient was not a candidate for either tenecteplase or intra-arterial thrombectomy due to symptoms not associated with stroke, and absence of clot for retrieval
Plan
Would at this time continue antiplatelet therapy
If MRI of brain fails to demonstrate acute ischemic lesion, discontinue both aspirin and clopidogrel as there is no clear etiology for need for same
Provide atorvastatin 40 mg to reduce LDL below 100 with the patient's current LDL of 166 and total cholesterol 260
Consider x-ray of left shoulder due to reported recurrent pain at time of injury (fall at time of admission)
Supportive measures for presumed infection
Avoid additional sedative medications
Consider rehabilitation evaluations based on MRI of brain results, specifically if there is evidence of acute ischemic stroke
Provide medical educational materials
Goal of normoglycemia
Goal of normotension
Will follow pending results
Subjective/Objective
Subjective Data
Date of Service: March 26, 2025
Neurology follow-up note.
Ms. Ro reports no complaints.
Brain MRI is pending.
PMH: bladder cancer in the 1980s, L retinal detachment, HTN, DLP, DM, colonic diverticulosis
PSH KIERAN BSO, left humeral ORIF, L vitrectomy
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 Completed high school.
FH: Noncontributory.
All: Codeine, penicillin
ROS: Negative for headache, change in vision or strength.
General: Well developed. In no acute distress.
Cardio: Regular rate and rhythm. Extremities are without cyanosis or edema.
Neuro:
Mental Status: Awake, oriented to self, person, month, year. Difficulties crossing midline. Not fluent. follows simple requests.
Cranial Nerves: Pupils are equally round and reactive to light. EOMs full. Blinks to threat bilaterally. No ptosis. No nystagmus. Face symmetric. Impaired hearing AU. The palate elevated well. SCMs and traps 5/5. Tongue midline. No
dysarthria.
Motor: Increased motor tone in lower extremities. Moves all limbs antigravity symmetrically purposefully.
Reflexes: Bilateral grasp
Coordination: No tremors myoclonic movement
Gait: deferred
Assessment and Plan:
I. Multifactorial encephalopathy (infectious, vascular, metabolic, neurodegenerative)
II. Sepsis on empiric Levofloxacin Flagyll
III. Vitamin B12 deficiency
- Continue telemetry monitoring
- Strict glycemic and blood pressure control
- Please recall neurology service with any acute findings on brain MRI
- Case was discussed with patient's family.
-Outpatient neurology follow-up
- DVT prophylaxis.
I personally reviewed all radiology and labs along with past medical records pertinent to current medical problems. Total time spent in patient care is 35 minutes.
Thank you for allowing us to participate in the care of this patient. Please do not hesitate to contact us with any questions or concerns.
Objective Data
Vital Signs
Temp Pulse Resp BP Pulse Ox
37.3 C 74 21 96/79 92
03/26/25 03:00 03/26/25 04:00 03/26/25 04:00 03/26/25 04:00 03/26/25 04:00
Lab Results
03/26/25 06:16
03/26/25 06:16
PT 13.7 Sec (11.4-14.6) 03/23/25 16:43
INR 1.02 03/23/25 16:43
APTT 25.0 Sec (23.4-35.0) 03/23/25 16:43
Sodium 136 mmol/L (135-145) D 03/26/25 06:16
Potassium 3.5 mmol/L (3.5-5.1) 03/26/25 06:16
BUN 17 mg/dl (7-17) 03/26/25 06:16
Glucose 193 mg/dl (70-99) H 03/26/25 06:16
Calcium 9.0 mg/dl (8.4-10.2) 03/26/25 06:16
Phosphorus 3.0 mg/dl (2.5-4.5) 03/26/25 06:16
LDL Cholesterol, Calc 166 mg/dl 03/24/25 04:56
Vitamin B12 230 pg/ml (239-931) L 03/24/25 04:56
Patient Allergies
codeine Allergy (Verified 03/23/25 18:46)
Tongue Swelling
Penicillins Allergy (Verified 03/23/25 18:46)
Tongue Swelling
Vital Signs and Labs
-
Vital Signs and Labs:
Vital Signs
Temp Pulse Resp BP Pulse Ox
36.7 C 71 12 110/90 95
03/26/25 07:28 03/26/25 06:00 03/26/25 06:00 03/26/25 06:00 03/26/25 06:45
Lab Results
03/26/25 06:16
03/26/25 06:16
PT 13.7 Sec (11.4-14.6) 03/23/25 16:43
INR 1.02 03/23/25 16:43
APTT 25.0 Sec (23.4-35.0) 03/23/25 16:43
Sodium 136 mmol/L (135-145) D 03/26/25 06:16
Potassium 3.5 mmol/L (3.5-5.1) 03/26/25 06:16
BUN 17 mg/dl (7-17) 03/26/25 06:16
Glucose 193 mg/dl (70-99) H 03/26/25 06:16
Calcium 9.0 mg/dl (8.4-10.2) 03/26/25 06:16
Phosphorus 3.0 mg/dl (2.5-4.5) 03/26/25 06:16
LDL Cholesterol, Calc 166 mg/dl 03/24/25 04:56
Vitamin B12 230 pg/ml (239-931) L 03/24/25 04:56
Medications
-
Medications:
Generic Name Dose Route Start Last Admin
Trade Name Freq PRN Reason Stop Dose Admin
Acetaminophen 650 mg 03/23/25 20:03 03/24/25 04:37
Acetaminophen 650 Mg Rectal Suppository RECTAL 04/20/25 20:02 650 mg
Q4HPRN PRN Administration
ARCHULETA, mild pain, or temp >100.4F
Acetaminophen 650 mg 03/23/25 20:03 03/25/25 12:17
Acetaminophen 325 Mg Tablet PO 04/20/25 20:02 650 mg
Q4HPRN PRN Administration
ARCHULETA, mild pain, or temp >100.4F
Aspirin 81 mg 03/26/25 10:00 03/26/25 10:00
Aspirin 81 Mg Chewable Tablet PO 04/23/25 09:59 81 mg
DAILY JOAN Administration
Atorvastatin Calcium 40 mg 03/24/25 18:00 03/25/25 17:45
Atorvastatin (Lipitor) 40 Mg Tablet PO 04/21/25 17:59 Not Given
QPM JOAN
Cyanocobalamin 1,000 mcg 03/25/25 08:00 03/26/25 10:00
Cyanocobalamin 1,000 Mcg Tablet PO 04/22/25 07:59 1,000 mcg
DAILY JOAN Administration
Dextrose 12.5 grams 03/23/25 20:03
Dextrose 50% (0.5 Grams/Ml) 50 Ml Syringe IV 04/20/25 20:02
[id number] PRN
hypoglycemia
Protocol
Glucagon 1 mg 03/23/25 20:03
Glucagon 1 Mg Vial IM 04/20/25 20:02
PRN PRN
hypoglycemia
Protocol
Hydralazine HCl 5 mg 03/24/25 15:14
Hydralazine 20 Mg/Ml Vial IV 04/20/25 20:02
Q4HPRN PRN
SBP>140 or DBP>100
Levofloxacin/Dextrose 750 mg in 150 mls @ 100 mls/hr 03/24/25 22:00 03/25/25 23:06
Levaquin IV 150 mls
Q24H JOAN Administration
Metronidazole 100 mls @ 100 mls/hr 03/24/25 10:00 03/26/25 10:01
Flagyl 500 Mg IV 100 mls
Q8H JOAN Administration
Insulin Glargine 5 units/ 0.05 mls @ 0 mls/hr 03/25/25 22:00 03/25/25 23:06
Device SC 04/22/25 21:59 0.05 mls
HS JOAN Administration
As Directed
Insulin Aspart 0 units 03/24/25 00:00 03/26/25 07:40
Insulin Aspart Moderate Resistance 300 Units/3 Ml Pen.Injctr SC 04/21/25 00:00 1 units
Q6 JOAN Administration
Protocol
Labetalol HCl 10 mg 03/24/25 15:14 03/26/25 02:37
Labetalol Hcl 5 Mg/1 Ml (20 Mg/4 Ml) Injection IV 04/20/25 20:02 10 mg
Q6HPRN PRN Administration
SBP>140 or DBP>100
Prochlorperazine Edisylate 10 mg 03/24/25 23:34 03/24/25 23:40
Prochlorperazine 10 Mg/2 Ml Vial IV 04/21/25 23:33 10 mg
Q6HPRN PRN Administration
n/v
Sodium Chloride 0 flush 03/23/25 21:00
Sodium Chloride 0.9% (Flush) Syringe IV 04/20/25 20:59
PER PROTOCOL JOAN
Home Medications
-
Home Medications
insulin glargine 100 unit/mL (3 mL) subcutaneous pen (Lantus Solostar U-100 Insulin) 35 units SC HS Diabetes 12/20/15
aspirin 81 mg tablet,delayed release 81 mg PO DAILY Blood Clot Prevention/Tx 03/23/25
lisinopril 40 mg tablet 40 mg PO DAILY Blood Pressure 03/23/25
pioglitazone 45 mg tablet 45 mg PO DAILY Diabetes 03/23/25
sitagliptin phosphate 100 mg tablet (Januvia) 100 mg PO DAILY Diabetes 03/23/25
[2025-03-26] MEDS: LR 1000 IV (07:42)
--- NOTE | 2025-03-26 07:46 | PTCARENOTE ---
Assumed care of pt from jacques RN. Pt ox2 (to self and place) Pt NSR on monitor. Pt's NIH 11. neuro checks completed q4 (see worklist) Pt is 95% on 2L. Herron in place draining clear yellow urine. Hygiene completed. Vitals and assessment as
documented. Pt resting in bed with bed alarm on and call damon in reach.
[2025-03-26 07:50] LABS: Glucose - Point of Care 180 mg/dl (70-99)
[2025-03-26] MEDS: ASPIRIN RECTAL (09:41)
[2025-03-26] MEDS: LOW STRENGTH ASPIRIN 81 MG PO (10:00)
[2025-03-26] MEDS: VITAMIN B-12 1000 MCG PO (10:00)
[2025-03-26 12:05] LABS: Glucose - Point of Care 188 mg/dl (70-99)
--- NOTE | 2025-03-26 15:28 | PTCARENOTE ---
Assumed care of patient at beginning of this shift from previous RN. NIHSS= 4. Patient able to MELVIN and follow commands. She knew the month but not year. Family member later came to desk and stated he was concerned that patient did not know him. This
nurse asked patient if this was her son; she corrected me stating it was her grandson (she was correct) and was able give date of his child as well. Patient seen by ST this morning and cleared for puredd with thin liquids and meds crushed in
applesauce. See worklist for full assessment.
--- NOTE | 2025-03-26 16:51 | CM ---
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 MRI pending today. O2 2L. Receiving IV Abx. Dysphagia diet. Per nursing; obeys commands, oriented & confused, forgetful, hallucinating.
PT/OT; assist of 2, recommendation TBD. PT/OT held today.
Phone message from daughter today requesting referral to [facility] SNF.
Plan continue to follow patient's progress with mentation and mobility.
Plan probable referrals to [facility] once PT/OT recommendations are available.
[2025-03-26] MEDS: LIPITOR 40 MG PO (18:11)
[2025-03-26] MEDS: APRESOLINE 5 MG IV (18:13)
[2025-03-26 18:20] LABS: Glucose - Point of Care 171 mg/dl (70-99)
[2025-03-26 21:25] LABS: Glucose - Point of Care 232 mg/dl (70-99)
[2025-03-26] MEDS: LEVAQUIN 150 IV (21:42)
[2025-03-26] MEDS: LANTUS 0.05 UNITS SC (21:43)
--- NOTE | 2025-03-26 22:00 | W.PN.HOSP.TC ---
Today's Communication/Plan
-
Assessment / Plan
Assessment / Plan
NAD
Scleral Anicteric
MMM
No JVD
CTABL
RRR, S1/S2
Soft, NT, ND, BS+
Warm, Dry
AAOx3 person place year
Calm
Acute encephalopathy being toxic versus metabolic (aspiration pneumonia/UTI versus dehydration/urinary retention/hyponatremia) or CVA.
MRI pending
Neurology following
Continue aspirin and statin
Avoid sedating agents
Was started on IV antibiotics for concern of aspiration pneumonia.
- Unclear if the antibiotics helped or IV fluids help to improve mental status
- Therefore at this time we will continue fluids and antibiotics
Hyponatremia and hypochloremia - resolved after IVF
Likely secondary to poor p.o. intake
DC IVF
Now on a diet, IDDSI 4, encourage po intake
Sepsis with unclear source but likely suspecting aspiration pneumonia versus UTI as urine analysis shows many bacteria but normal WBC negative bacteria and nitrates
Urine culture now growing GNR's - Klebsiella that is sensitive to Levoquin therefore, will continue
Will continue levofloxacin to cover for UTI and Flagyl to cover for anaerobes therefore both levofloxacin and Flagyl will cover for aspiration pneumonia treat for 7-day course
Acute Urinary Retention 800cc noted on bladder scan
Herron placed
monitor urine output
Eventual TOV with outpatient Urologist
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
Left shoulder x-ray without acute finding
Vitamin B12 deficiency
Continue supplementation
DM
updated A1c 8.2
hold home PO diabetic medications for now
check Q6 FS while NPO
medium dose sliding scale
Lantus 5U HS reduced from home dose d/t NPO
titrate insulin regimen as necessary
Awaiting speech therapy
Hypoglycemia protocol
Anticipated Discharge: Within 24 hours
Subjective/Interval History
-
Date of Service: March 26, 2025
seen and examined. no new complaints. no acute overnight events
grandson and at bedside
-full update provided regarding thought process and differential diagnosis
per family significancy improved from yesterday
Objective Data
-
Vital Signs:
Vital Signs
Temp Pulse Resp BP Pulse Ox
98.7 F 82 30 178/108 93
03/26/25 19:00 03/26/25 21:51 03/26/25 20:00 03/26/25 21:51 03/26/25 20:25
I&O
03/25/25 03/26/25 03/27/25
06:59 06:59 06:59
Intake Total 1250 / 1250 1000 / 1000 1210 / 1210
Output Total 1350 / 1350 2400 / 2400 2800 / 2800
Balance -100 / -100 -1400 / -1400 -1590 / -1590
[2025-03-27] VITALS (15 sets, daily range): BP systolic 100–192; BP diastolic 47–144; PULSE 84–92
[2025-03-27] MEDS: FLAGYL 500 MG 100 IV ×3 (01:14→17:43)
[2025-03-27] MEDS: APRESOLINE 5 MG IV ×2 (01:15→08:56)
--- NOTE | 2025-03-27 02:22 | PTCARENOTE ---
Pt becoming increasingly agitated and adamant about leaving the hospital. Persistent about getting out of bed. Unable to redirect pt. Daughter at bedside which was also unable to redirect patient. Notified DATABASE REPORTING CONSULTANT. 4pt soft limb restraints and 4
side rails ordered for patient safety. Call damon within reach; bed alarm active; daughter remains at bedside.
[2025-03-27 04:08] LABS: Hematocrit 42.6 % (37.0-47.0); Hemoglobin 14.8 g/dL (12.0-16.0); Mean Corp Hgb Conc. 34.7 g/dL (33.0-37.0); Mean Corpuscular Hgb 29.7 pg (27.0-31.0); Mean Corpuscular Volume 85.5 fL (81.0-99.0); Mean Platelet Volume 10.6 fL (7.4-10.4); Platelet Count 220 10^3/uL (130-400); Red Blood Cell Count 4.98 10^6/uL (4.20-5.40)
[2025-03-27 04:37] LABS: Blood Urea Nitrogen 15 mg/dl (7-17); Calcium 9.3 mg/dl (8.4-10.2); Carbon Dioxide 25 mmol/L (22-30); Chloride 97 mmol/L (98-107); Glucose 254 mg/dl (70-99); Magnesium 1.6 mg/dl (1.6-2.3); Phosphorus 2.9 mg/dl (2.5-4.5); Potassium 3.7 mmol/L (3.5-5.1); Sodium 135 mmol/L (135-145); eGFR > 60.00
[2025-03-27] MEDS: TRANDATE 10 MG IV (06:33)
[2025-03-27 07:53] LABS: Glucose - Point of Care 219 mg/dl (70-99)
[2025-03-27] MEDS: NOVOLOG FLEXPEN-MODERATE RESISTANCE 3 UNITS SC (08:52)
[2025-03-27] MEDS: TYLENOL 650 MG PO ×2 (08:53→17:42)
[2025-03-27] MEDS: LOW STRENGTH ASPIRIN 81 MG PO (08:53)
[2025-03-27] MEDS: VITAMIN B-12 1000 MCG PO (08:53)
--- NOTE | 2025-03-27 09:17 | PTCARENOTE ---
Assumed care of patient this AM. Overnight patient was confused and hallucinating. Trying to get out of bed and wanting to go home. Could not be redirected. Currently family in room. Removed restraints, will see how patient does without them.
Patient is able to state name and date and she stated she was in [facility] although she is hallucinating and having trouble following simple commands.
[2025-03-27 12:18] LABS: Glucose - Point of Care 331 mg/dl (70-99)
--- NOTE | 2025-03-27 12:55 | CM ---
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 O2 2L. Receiving IV Abx. Dysphagia diet. PT/OT; recommend skilled rehab. Per nursing; restraints during the night for agitation, confused and hallucinating this
morning.
Met with patient, , son with daughter Sterling on phone;
discussed short term SNF for rehab vs home with HH.
The son thinks patient's mentation is much better- CM informed family that patient is still having periods of confusion and hallucinations.
Spoke with Radha Ferraro [facility]; they do not have an available bed, and cannot take her due to her as there is not an available bed on the memory care unit.
Spoke with Radha Trimble [facility]; no female beds available.
Spoke with patient's daughter Sterling again; she wants to research other SNFs and will let CM know their SNF preferences. Discussed local SNFs.
Plan follow up with daughter for additional SNF preferences.
--- NOTE | 2025-03-27 13:02 | W.PN.HOSP.TC ---
Today's Communication/Plan
-
Assessment / Plan
Assessment / Plan
NAD
Scleral Anicteric
MMM
No JVD
CTABL
RRR, S1/S2
Soft, NT, ND, BS+
Warm, Dry
AAOx3 person place year
Calm
Acute encephalopathy being toxic versus metabolic (aspiration pneumonia/UTI versus dehydration/urinary retention/hyponatremia) or CVA.
MRI without acute abnormalities
Neurology following
Continue aspirin and statin
Avoid sedating agents
Was started on IV antibiotics for concern of aspiration pneumonia.
- Unclear if the antibiotics helped or IV fluids help to improve mental status
- Therefore at this time we will continue fluids and antibiotics
?Sundowning/hospital-acquired delirium
Continue frequent reorientation
Start melatonin at bedtime
Hyponatremia and hypochloremia - resolved after IVF
Likely secondary to poor p.o. intake
DC IVF
Now on a diet, IDDSI 5, encourage po intake, supervised feeding
Sepsis with unclear source but likely suspecting aspiration pneumonia versus UTI as urine analysis shows many bacteria but normal WBC negative bacteria and nitrates
Urine culture now growing GNR's - Klebsiella that is sensitive to Levoquin therefore, will continue
Will continue levofloxacin to cover for UTI and Flagyl to cover for anaerobes therefore both levofloxacin and Flagyl will cover for aspiration pneumonia treat for 7-day course
Acute Urinary Retention 800cc noted on bladder scan
Herron placed
monitor urine output
Eventual TOV with outpatient Urologist
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
Left shoulder x-ray without acute finding
Vitamin B12 deficiency
Continue supplementation
DM
updated A1c 8.2
hold home PO diabetic medications for now
AC/HS BG goal 140-180
medium dose sliding scale
begin weight based insulin dosing (longg and short acting)
-as on long acting insulin 35u as outpatient will weigth base to 0.3u/kg.
titrate insulin regimen as necessary
Awaiting speech therapy
Hypoglycemia protocol
Downgrade to med surg
Begin dispo planning
PT/OT rec SNF
Anticipated Discharge: 24 - 48 hours
Subjective/Interval History
-
Date of Service: March 27, 2025
Seen and examined. No new complaints. No acute overnight events.
Objective Data
-
Labs:
Laboratory Results
03/27/25
04:00
WBC 12.0 H
Hgb 14.8
Hct 42.6
Plt Count 220
Sodium 135
Potassium 3.7
Chloride 97 L
Carbon Dioxide 25
BUN 15
Creatinine 0.6
Glucose 254 H
Calcium 9.3
Vital Signs:
Vital Signs
Temp Pulse Resp BP Pulse Ox
97.7 F 93 25 129/68 95
03/27/25 11:49 03/27/25 11:00 03/27/25 11:00 03/27/25 11:00 03/27/25 08:02
I&O
03/26/25 03/27/25 03/28/25
06:59 06:59 06:59
Intake Total 1000 / 1000 1210 / 1210
Output Total 2400 / 2400 3525 / 3525
Balance -1400 / -1400 -2315 / -2315
--- NOTE | 2025-03-27 13:31 | PN.DE.MGMTRT ---
Insulin Management
- -
03/27/2025 Diabetes Management Consult
Patient admitted 03/23 with CVA/TIA symptoms, acute encephalopathy vs metabolic. PMH, HTN, diabetes, hypothyroid. Prior to admission was taking 35 units lantus @ hs, pioglitazone 45 mg daily and Januvia 100 mg daily. A1C on admission 8.2%, cr .6,
eGFR >60.
Patient is awake alert and oriented oob in chair, and son @ bedside, very supportive. and son both state she has had diabetes 10+ years. She has not been to a doctor in 5+ years. She does not check her blood sugar at home, does
not want to do that because it hurts too much.
Last HS she received 5 unit lantus, fasting glucose 254. Will increase hs lantus to 20 units and start 3 units novolog AC, moderate corrective changed to low corrective.
Will follow
Discussed with nurse.
Diabetes History
- -
Type of Diabetes: 2 requiring insulin
Pre-Admission Diabetes Regimen
03/27/25
04:00
Creatinine 0.6
Lab Results
Hemoglobin A1c 8.2 % (4.0-5.6) H 03/24/25 04:56
Insulin Pump Settings
IP Diabetes Regimen
03/26/25 03/26/25 03/27/25
18:08 21:13 04:00
Glucose 254 H
POC Glucose 171 H 232 H
03/27/25 03/27/25
07:41 12:07
Glucose
POC Glucose 219 H 331 H
Patient Education
[2025-03-27] MEDS: NOVOLOG FLEXPEN-MODERATE RESISTANCE 7 UNITS SC (13:34)
--- NOTE | 2025-03-27 16:07 | PTCARENOTE ---
All restraints removed 09:45. Family in room at bedside. Patient is more oriented but is still hallucinating at times. Patient worked with PT/OT and sat in chair for a few hours. Assist x2 back to bed. SR on monitor. BP's have been on higher
side. PRN medications for HTN given as ordered. Herron catheter to remain in as per Dr. Graham.
[2025-03-27 16:37] LABS: Glucose - Point of Care 188 mg/dl (70-99)
[2025-03-27] MEDS: NOVOLOG FLEXPEN 3 UNITS SC (17:40)
[2025-03-27] MEDS: NOVOLOG FLEXPEN-LOW RESISTANCE 1 UNITS SC (17:40)
[2025-03-27] MEDS: LIPITOR 40 MG PO (17:42)
[2025-03-27 21:36] LABS: Glucose - Point of Care 195 mg/dl (70-99)
[2025-03-27] MEDS: MELATONIN 5 MG PO (21:57)
[2025-03-27] MEDS: LANTUS 0.2 UNITS SC (21:57)
[2025-03-27] MEDS: LEVAQUIN 150 IV (21:58)
[2025-03-28 00:10] VITALS: BP 136/89
[2025-03-28] MEDS: FLAGYL 500 MG 100 IV ×2 (03:05→09:03)
--- NOTE | 2025-03-28 03:35 | PTCARENOTE ---
Pt received from previous shift. restraints not in use. at bedside, able to assist pt in keeping calm and reorienting her when getting confused. pt can answer all orientation questions, is forgetful at times. bed alarm in use. Giraldo in
place, draining yellow urine, giraldo care provided. Giraldo in place, verbal order present in physical chart stating to leave giraldo in place which was taken by the previous shift. assessment as documented.
[2025-03-28 05:50] LABS: Hematocrit 37.2 % (37.0-47.0); Mean Corp Hgb Conc. 34.9 g/dL (33.0-37.0); Mean Corpuscular Hgb 29.7 pg (27.0-31.0); Mean Corpuscular Volume 85.1 fL (81.0-99.0); Platelet Count 194 10^3/uL (130-400); Red Blood Cell Count 4.37 10^6/uL (4.20-5.40); Red Cell Dist. Width 12.9 % (11.5-14.5); White Blood Cell Count 9.3 10^3/uL (4.8-10.8)
[2025-03-28 06:15] LABS: Blood Urea Nitrogen 24 mg/dl (7-17); Calcium 8.8 mg/dl (8.4-10.2); Carbon Dioxide 27 mmol/L (22-30); Chloride 98 mmol/L (98-107); Estimated Creatinine Clearance 65 ml/min; Glucose 197 mg/dl (70-99); Magnesium 1.7 mg/dl (1.6-2.3); Phosphorus 4.3 mg/dl (2.5-4.5); Potassium 3.4 mmol/L (3.5-5.1); Sodium 132 mmol/L (135-145); eGFR > 60.00
[2025-03-28 08:05] LABS: Glucose - Point of Care 193 mg/dl (70-99)
[2025-03-28] MEDS: LOW STRENGTH ASPIRIN 81 MG PO (08:55)
[2025-03-28] MEDS: NOVOLOG FLEXPEN 3 UNITS SC (08:55)
[2025-03-28] MEDS: VITAMIN B-12 1000 MCG PO (08:55)
[2025-03-28] MEDS: NOVOLOG FLEXPEN-LOW RESISTANCE 1 UNITS SC ×2 (08:56→14:03)
[2025-03-28 09:07] VITALS: BP 162/79
[2025-03-28 09:09] VITALS: BP 162/79
--- NOTE | 2025-03-28 09:54 | PN.DE.MGMTRT ---
Insulin Management
- -
03/28/2025 Diabetes Management Consult Follow up
Patient admitted 03/23 with CVA/TIA symptoms, acute encephalopathy vs metabolic. PMH, HTN, diabetes, hypothyroid. Prior to admission was taking 35 units lantus @ hs, pioglitazone 45 mg daily and Januvia 100 mg daily. A1C on admission 8.2%, cr .6,
eGFR >60.
Patient is awake alert and oriented resting in bed, @ bedside, very supportive.
Received 20 units lantus @ HS last evening, fasting glucose 193. Will increase hs lantus to 26 units and AC novolog to 5 units, low corrective.
Will provided Contour Next glucose monitor and demonstrated steps for testing. Patient exclaimed that she did not even feel the fingerstick. Reassured her that if she uses the lancing device set to #2 and uses the side of her fingers she should
experience very little pain. Neither she nor her were able to return demonstrate use of meter, they will need assistance at home. She has been resistant to testing at home but I am hopeful she will finally begin testing. Family would
like CGM, described process to obtain CGM.
Will follow
Discussed with nurse.
03/27 states she has had diabetes 10+ years. She has not been to a doctor in 5+ years. She does not check her blood sugar at home, does not want to do that because it hurts too much.
Diabetes History
- -
Type of Diabetes: 2 requiring insulin
Pre-Admission Diabetes Regimen
03/28/25
05:35
Creatinine 0.7
Lab Results
Hemoglobin A1c 8.2 % (4.0-5.6) H 03/24/25 04:56
Insulin Pump Settings
IP Diabetes Regimen
03/27/25 03/27/25 03/27/25
12:07 16:26 21:18
Glucose
POC Glucose 331 H 188 H 195 H
03/28/25 03/28/25
05:35 07:53
Glucose 197 H
POC Glucose 193 H
Meal type: Lunch
Amount consumed: 30%
Patient Education
--- NOTE | 2025-03-28 10:24 | CM ---
Addendum entered by Milagro Clay RN 03/28/25 10:43:
Daughter called back saying she spoke with her family and they prefer [facility] instead.
Phone call to Radha De Leon [facility], request to review referral.
Plan follow up with [facility].
Original Note:
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 Room air. Receiving IV Abx. Dysphagia diet. PT/OT; recommend skilled rehab. Per nursing; restraints removed, confused, forgetful.
Spoke with daughter Sterling;
she relayed that she agreed to have Aj Avila (ph [phone]) from [facility] do onsite today for their assisted living facility. Daughter decides short term SNF prior to assisted living may be best option. Discussed additional SNFs near
[place] and provided [facility] ratings. Daughter agreed to a referral to [facility].
Spoke with Radha Momin [facility]; she does have 1 female bed available and will review the referral.
Plan follow up with [facility] for acceptance.
[2025-03-28] MEDS: KCL ELIXIR 40 MEQ PO (10:57)
[2025-03-28] MEDS: NOVOLOG FLEXPEN 5 UNITS SC ×2 (14:03→16:57)
[2025-03-28 14:12] LABS: Glucose - Point of Care 168 mg/dl (70-99)
--- NOTE | 2025-03-28 14:24 | W.PN.HOSP.TC ---
Today's Communication/Plan
-
Dispo planning
Assessment / Plan
Assessment / Plan
NAD
Scleral Anicteric
MMM
No JVD
CTABL
RRR, S1/S2
Soft, NT, ND, BS+
Warm, Dry
AAOx3 person place year
Calm
Acute encephalopathy being toxic versus metabolic (aspiration pneumonia/UTI versus dehydration/urinary retention/hyponatremia) or CVA.
MRI without acute abnormalities
Neurology following
Continue aspirin and statin
Avoid sedating agents
Was started on IV antibiotics for concern of aspiration pneumonia.
- Unclear if the antibiotics helped or IV fluids help to improve mental status
- Therefore at this time we will continue fluids and antibiotics
?Sundowning/hospital-acquired delirium
Continue frequent reorientation
Start melatonin at bedtime
Hyponatremia and hypochloremia - resolved after IVF
Likely secondary to poor p.o. intake
DC IVF
Now on a diet, IDDSI 5, encourage po intake, supervised feeding
Sepsis with unclear source but likely suspecting aspiration pneumonia versus UTI as urine analysis shows many bacteria but normal WBC negative bacteria and nitrates
Urine culture now growing GNR's - Klebsiella that is sensitive to Levoquin therefore, will continue
Will continue levofloxacin to cover for UTI and Flagyl to cover for anaerobes therefore both levofloxacin and Flagyl will cover for aspiration pneumonia treat for 7-day course
Acute Urinary Retention 800cc noted on bladder scan
Herron placed
monitor urine output
Eventual TOV with outpatient Urologist
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
Left shoulder x-ray without acute finding
Vitamin B12 deficiency
Continue supplementation
DM
updated A1c 8.2
hold home PO diabetic medications for now
AC/HS BG goal 140-180
medium dose sliding scale
begin weight based insulin dosing (longg and short acting)
titrate insulin regimen as necessary
Diabetes consultants following adjusting insulin
Awaiting speech therapy
Hypoglycemia protocol
Downgrade to med surg
Begin dispo planning
PT/OT rec SNF
Anticipated Discharge: 24 - 48 hours
Subjective/Interval History
-
Date of Service: March 28, 2025
Seen and examined. No new complaints. No acute overnight events.
Objective Data
-
Labs:
Laboratory Results
03/28/25
05:35
WBC 9.3
Hgb 13.0
Hct 37.2
Plt Count 194
Sodium 132 L
Potassium 3.4 L
Chloride 98
Carbon Dioxide 27
BUN 24 H
Creatinine 0.7
Glucose 197 H
Calcium 8.8
Vital Signs:
Vital Signs
Temp Pulse Resp BP Pulse Ox
98.2 F 74 18 162/79 95
03/28/25 11:06 03/28/25 09:07 03/28/25 09:07 03/28/25 09:09 03/28/25 09:28
I&O
03/27/25 03/28/25 03/29/25
06:59 06:59 06:59
Intake Total 1210 / 1210
Output Total 3525 / 3525 400 / 400
Balance -2315 / -2315 -400 / -400
[2025-03-28 16:30] VITALS: BP 154/75
[2025-03-28] MEDS: FLAGYL 500 MG PO ×2 (16:57→23:35)
[2025-03-28] MEDS: NOVOLOG FLEXPEN-LOW RESISTANCE SC (16:59)
[2025-03-28] MEDS: LIPITOR 40 MG PO (17:00)
[2025-03-28 17:07] LABS: Glucose - Point of Care 147 mg/dl (70-99)
[2025-03-28] MEDS: LEVAQUIN 750 MG PO (20:41)
[2025-03-28] MEDS: MELATONIN 5 MG PO (20:41)
[2025-03-28] MEDS: LANTUS 0.26 UNITS SC (20:43)
[2025-03-28 20:54] LABS: Glucose - Point of Care 131 mg/dl (70-99)
[2025-03-28 23:32] VITALS: BP 137/59
[2025-03-29 05:15] VITALS: BMI 26.8
--- NOTE | 2025-03-29 05:20 | PTCARENOTE ---
Patient has been cooperative overnight. Slightly forgetful in conversation, otherwise oriented x4. Daughter(Sterling) stayed at bedside. Pt denies any pain. Repositioned throughout the night. Herron draining straw/yellow urine. Afebrile. VSS. 94-95% RA.
Swallowed pills w/o issues, no s/s of aspiration. Bed alarm set for safety. Call damon & tray table within reach.
[2025-03-29 05:30] LABS: Hematocrit 37.7 % (37.0-47.0); Hemoglobin 13.1 g/dL (12.0-16.0); Mean Corp Hgb Conc. 34.7 g/dL (33.0-37.0); Mean Corpuscular Hgb 29.8 pg (27.0-31.0); Mean Corpuscular Volume 85.9 fL (81.0-99.0); Platelet Count 205 10^3/uL (130-400); Red Blood Cell Count 4.39 10^6/uL (4.20-5.40); Red Cell Dist. Width 13.2 % (11.5-14.5); White Blood Cell Count 9.7 10^3/uL (4.8-10.8)
[2025-03-29 05:59] LABS: Blood Urea Nitrogen 20 mg/dl (7-17); Carbon Dioxide 27 mmol/L (22-30); Chloride 100 mmol/L (98-107); Estimated Creatinine Clearance 51 ml/min; Glucose 139 mg/dl (70-99); Magnesium 1.6 mg/dl (1.6-2.3); Phosphorus 4.2 mg/dl (2.5-4.5); Potassium 3.8 mmol/L (3.5-5.1); Sodium 134 mmol/L (135-145); eGFR > 60.00
[2025-03-29] MEDS: LOW STRENGTH ASPIRIN 81 MG PO (07:45)
[2025-03-29] MEDS: FLAGYL 500 MG PO ×3 (07:45→23:21)
[2025-03-29] MEDS: VITAMIN B-12 1000 MCG PO (07:45)
[2025-03-29] MEDS: NOVOLOG FLEXPEN 5 UNITS SC ×3 (07:47→17:03)
[2025-03-29] MEDS: NOVOLOG FLEXPEN-LOW RESISTANCE SC ×3 (07:47→17:04)
[2025-03-29 07:59] LABS: Glucose - Point of Care 145 mg/dl (70-99)
--- NOTE | 2025-03-29 08:29 | PN.DE.MGMTRT ---
Insulin Management
- -
03/29/2025: Diabetes Management Follow up
Patient admitted 03/23 with CVA/TIA symptoms, acute encephalopathy vs metabolic. PMH: HTN, T2DM, Hypothyroid.
Prior to admission was taking 35 units Lantus @ hs, pioglitazone 45 mg daily and Januvia 100 mg daily. A1C on admission 8.2%, Cr 0.6, eGFR >60.
states pt has had diabetes 10+ years. She has not been to a doctor in 5+ years and does not check her blood sugar at home, does not want to do that because it hurts too much.
Patient is awake alert and oriented resting in bed, @ bedside, very supportive.
Insulin dose adjusted yesterday. Received 26 units Lantus @ HS last evening, fasting glucose 139 V, 145 POC. Will cont same dose of Lantus 26 units @ HS.
Premeal range yesterday was 147 to 193, Will cont current AC NovoLog dose 5 units and low corrective with meals.
Dispo is SNF, nursing staff at facility will monitor her blood sugars and administer the insulin
03/28, Pt and were provided Contour Next glucose monitor and demonstrated steps for testing. Patient exclaimed that she did not even feel the fingerstick. Reassured her that if she uses the lancing device set to #2 and uses the side of her
fingers she should experience very little pain. Neither she nor her were able to return demonstrate use of meter, they will need assistance at home. She has been resistant to testing at home but I am hopeful she will finally begin
testing. Family would like CGM, described process to obtain CGM.
Will cont to follow
Diabetes History
- -
Type of Diabetes: 2 requiring insulin
Pre-Admission Diabetes Regimen
03/29/25
05:07
Creatinine 0.8
Lab Results
Hemoglobin A1c 8.2 % (4.0-5.6) H 03/24/25 04:56
Insulin Pump Settings
IP Diabetes Regimen
03/28/25 03/28/25 03/28/25
14:01 16:55 20:43
Glucose
POC Glucose 168 H 147 H 131 H
03/29/25 03/29/25
05:07 07:47
Glucose 139 H
POC Glucose 145 H
Meal type: Breakfast
Amount consumed: 60%
Patient Education
--- NOTE | 2025-03-29 09:15 | PTCARENOTE ---
Patient received from mold shifter. Patient resting comfortably in bed. AAOx 2-3, little forgetful, VSS. No events noted overnight. No complaints of pain at this time. Daughter stayed the night, is now in the room. Remain as Med/Surg
level of care. Continuing PO ABX. No testing scheduled at this time. Call damon in reach.
[2025-03-29 13:12] LABS: Glucose - Point of Care 136 mg/dl (70-99)
--- NOTE | 2025-03-29 16:35 | W.PN.HOSP.TC ---
Today's Communication/Plan
-
Assessment / Plan
Assessment / Plan
NAD
Scleral Anicteric
MMM
No JVD
CTABL
RRR, S1/S2
Soft, NT, ND, BS+
Warm, Dry
AAOx3 person place year
Calm
Acute encephalopathy being toxic versus metabolic (aspiration pneumonia/UTI versus dehydration/urinary retention/hyponatremia) or CVA.
MRI without acute abnormalities
Neurology following
Continue aspirin and statin
Avoid sedating agents
Was started on IV antibiotics for concern of aspiration pneumonia.
- Unclear if the antibiotics helped or IV fluids help to improve mental status
- Therefore at this time we will continue fluids and antibiotics
?Sundowning/hospital-acquired delirium
Continue frequent reorientation
Start melatonin at bedtime
Hyponatremia and hypochloremia - resolved after IVF
Likely secondary to poor p.o. intake
DC IVF
Now on a diet, IDDSI 5, encourage po intake, supervised feeding
Sepsis with unclear source but likely suspecting aspiration pneumonia versus UTI as urine analysis shows many bacteria but normal WBC negative bacteria and nitrates
Urine culture now growing GNR's - Klebsiella that is sensitive to Levoquin therefore, will continue
Will continue levofloxacin to cover for UTI and Flagyl to cover for anaerobes therefore both levofloxacin and Flagyl will cover for aspiration pneumonia treat for 7-day course
Acute Urinary Retention 800cc noted on bladder scan
Herron placed
monitor urine output
Eventual TOV with outpatient Urologist
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
Left shoulder x-ray without acute finding
Vitamin B12 deficiency
Continue supplementation
DM
updated A1c 8.2
hold home PO diabetic medications for now
AC/HS BG goal 140-180
medium dose sliding scale
begin weight based insulin dosing (longg and short acting)
titrate insulin regimen as necessary
Diabetes consultants following adjusting insulin
Awaiting speech therapy
Hypoglycemia protocol
Downgrade to med surg
Begin dispo planning
PT/OT rec SNF
Anticipated Discharge: Within 24 hours
Subjective/Interval History
-
Date of Service: March 29, 2025
seen and examined. no new complaints. no acute overnight events
Objective Data
-
Labs:
Laboratory Results
03/29/25
05:07
WBC 9.7
Hgb 13.1
Hct 37.7
Plt Count 205
Sodium 134 L
Potassium 3.8
Chloride 100
Carbon Dioxide 27
BUN 20 H
Creatinine 0.8
Glucose 139 H
Calcium 9.0
Vital Signs:
Vital Signs
Temp Pulse Resp BP Pulse Ox
98.2 F 80 24 137/59 95
03/29/25 11:09 03/28/25 23:32 03/28/25 23:32 03/28/25 23:32 03/29/25 13:28
I&O
03/28/25 03/29/25 03/30/25
06:59 06:59 06:59
Output Total 400 / 400 750 / 750 250 / 250
Balance -400 / -400 -750 / -750 -250 / -250
[2025-03-29 16:40] LABS: Glucose - Point of Care 145 mg/dl (70-99)
--- NOTE | 2025-03-29 16:57 | CM ---
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 Room air. PT/OT; recommend skilled rehab. Per nursing; confused, forgetful.
Message from Adm Moisses Curtis Gracey [facility]; they will not have an available bed for this patient.
Met with patient, and spoke with daughter Sterling; all agree to d/c to [facility] tomorrow by ambulance at 10am. IMM completed and copy sent to daughter Sterling at her email: [email or web address]
Spoke with Radha Momin [facility]; they are able to accept the patient tomorrow. The for nurse report [phone], fax [phone].
Ambulance forms given to Kay, Behavior Support Specialist - ambulance setup for 10am tomorrow.
Plan [facility] tomorrow by ambulance at 10am.
[2025-03-29] MEDS: LIPITOR 40 MG PO (17:03)
[2025-03-29 21:33] LABS: Glucose - Point of Care 118 mg/dl (70-99)
[2025-03-29] MEDS: LANTUS 0.26 UNITS SC (21:51)
[2025-03-29] MEDS: LEVAQUIN 750 MG PO (21:51)
--- NOTE | 2025-03-29 23:05 | PTCARENOTE ---
Report called to [facility]. Pt transferred via bed with belongings to room 332. (Sukhjinder) at bedside, staying the night.
[2025-03-29] MEDS: MELATONIN 5 MG PO (23:22)
[2025-03-29 23:52] VITALS: BP 173/80
--- NOTE | 2025-03-29 23:58 | PTCARENOTE ---
Pt transferred from IMU into bed 332. Pt assessed, oriented to room, call damon within reach. at bedside. Care ongoing.
[2025-03-30 07:43] VITALS: BP 158/79
[2025-03-30 08:34] LABS: Glucose - Point of Care 125 mg/dl (70-99)
[2025-03-30] MEDS: NOVOLOG FLEXPEN-LOW RESISTANCE SC (08:34)
[2025-03-30] MEDS: NOVOLOG FLEXPEN 5 UNITS SC (08:35)
[2025-03-30] MEDS: LOW STRENGTH ASPIRIN 81 MG PO (08:36)
[2025-03-30] MEDS: FLAGYL 500 MG PO (08:36)
[2025-03-30] MEDS: VITAMIN B-12 PO (08:36)
[2025-03-30] MEDS: VITAMIN B-12 1000 MCG PO (08:42)
[2025-03-30 09:38] LABS: Hemoglobin 13.4 g/dL (12.0-16.0); Mean Corp Hgb Conc. 35.3 g/dL (33.0-37.0); Mean Corpuscular Hgb 29.7 pg (27.0-31.0); Mean Corpuscular Volume 84.3 fL (81.0-99.0); Mean Platelet Volume 11.3 fL (7.4-10.4); Platelet Count 202 10^3/uL (130-400); Red Blood Cell Count 4.51 10^6/uL (4.20-5.40); Red Cell Dist. Width 13.2 % (11.5-14.5); White Blood Cell Count 9.2 10^3/uL (4.8-10.8)
--- NOTE | 2025-03-30 09:47 | PTCARENOTE ---
Called to give report to Bud Hsu at 930 am, no answer, called at 938 am and was put on hold for 8 minutes, called again at 947 am and no answer again after leaving it ring for a long time. Pt to be picked up at 10 by ambulance. Will try to
call again soon.
--- NOTE | 2025-03-30 09:52 | W.DCSUMMARY ---
Discharge Summary
Discharge Data
Date of Admission: 03/23/25
Date of Discharge: 03/30/25
-
Pending Results: No
Hospital Course
89F HTN HLD DM Hypothyroidism B/l Upper ext tracie placements for fracture 2017 recent left eye retinal detachment surgery a month ago
Presented with progressive altered mental status initially concern for CVA was evaluated by neurology recommended MRI brain. Urinalysis only positive for bacteria but no white blood cells no leuks or nitrates. Urine culture growing pansensitive
Klebsiella that was only resistant to ampicillin. Started on levofloxacin. Additionally concern for potential aspiration pneumonia which Flagyl was added. IV fluids initiated for hyponatremia with improvement in sodium. Additionally, noted to
have acute urinary retention therefore Herron catheter was placed and will require outpatient urology follow-up within the next [address]
IMPRESSION:
No gross acute intracranial abnormality.
Left orbital globe slightly smaller in size than the right and marked increase attenuation of the vitreous of the left globe new in the interval since prior study. Findings could be the sequela of trauma including retinal detachment.
Head/Neck CTA
IMPRESSION:
Some calcific atherosclerotic plaque within the carotid arterial system bilaterally without hemodynamically significant stenosis, as detailed above.
No findings to suggest internal carotid artery or vertebral artery dissection bilaterally.
No significant proximal intracranial arterial abnormality bilaterally.
CXR
FINDINGS/impression:
Slightly diminished inspiration. This likely contributes to slight accentuation of bronchovascular markings. As far as visualized, no evidence of pneumonia or congestive heart failure. Mild cardiomegaly. No pneumothorax. No radiographic demonstrable
pleural effusion.
Shoulder Xray
IMPRESSION:
No acute fractures.
Old, internally fixated fracture of the left humerus.
Brain MRI
IMPRESSION:
No acute intracranial abnormality noted. Specifically, no acute infarct. Mild chronic senescent white matter changes.
Seen and examined on the day of discharge which 03/30/2025. Son and today at bedside.
She is concerned that she does not know where her clothes or and her belongings.
She wants to get out of the hospital as Mother's Day
NAD
Scleral Anicteric
MMM
No JVD
CTABL
RRR, S1/S2
Soft, NT, ND, BS+
Warm, Dry
AAOx3 person place year
Calm
Acute encephalopathy being toxic versus metabolic (aspiration pneumonia/UTI versus dehydration/urinary retention/hyponatremia) or CVA.
MRI without acute abnormalities
Neurology following
Continue aspirin and statin
Avoid sedating agents
Was started on IV antibiotics for concern of aspiration pneumonia.
- Unclear if the antibiotics helped or IV fluids help to improve mental status
- Therefore at this time we will continue fluids and antibiotics
?/hospital-acquired delirium
Continue frequent reorientation
Start melatonin at bedtime
Hyponatremia and hypochloremia - resolved after IVF
Likely secondary to poor p.o. intake
DC IVF
Now on a diet, IDDSI 5, encourage po intake, supervised feeding
Sepsis with unclear source but likely suspecting aspiration pneumonia versus UTI as urine analysis shows many bacteria but normal WBC negative bacteria and nitrates
Urine culture now growing GNR's - Klebsiella that is sensitive to Levoquin therefore, will continue
Will continue levofloxacin to cover for UTI and Flagyl to cover for anaerobes therefore both levofloxacin and Flagyl will cover for aspiration pneumonia treat for 7-day course
Acute Urinary Retention 800cc noted on bladder scan
Herron placed
monitor urine output
Eventual TOV with outpatient Urologist
Fall MOBILE ARCHITECT, Left shoulder Pain
Left shoulder x-ray without acute finding
Vitamin B12 deficiency
Continue supplementation
DM
updated A1c 8.2
hold home PO diabetic medications for now
AC/HS BG goal 140-180
medium dose sliding scale
begin weight based insulin dosing (longg and short acting)
titrate insulin regimen as necessary
Diabetes consultants following adjusting insulin
Awaiting speech therapy
Hypoglycemia protocol
More than 30 minutes spent in discharge including
Final examination of the patient
Summarizing hospital stay
Instructions for continuing care to all relevant caregivers
Preparation of discharge records, prescriptions, and referral forms
Total time spent (in minutes): 36mins
Discharge Plan
-
Patient Disposition: Retirement/SNF
Discharge Diagnosis/Procedures: Toxic metabolic encephalopathy in the setting of dehydration urinary retention UTI
Condition: Good
Diet: As tolerated and Diabetic, Carb Controlled
Activity: As tolerated
Activity Restrictions/Additional Instructions:
Presented with progressive altered mental status initially concern for CVA was evaluated by neurology recommended MRI brain. Urinalysis only positive for bacteria but no white blood cells no leuks or nitrates. Urine culture growing pansensitive
Klebsiella that was only resistant to ampicillin. Started on levofloxacin. Additionally concern for potential aspiration pneumonia which Flagyl was added. IV fluids initiated for hyponatremia with improvement in sodium. Additionally, noted to
have acute urinary retention therefore Herron catheter was placed and will require outpatient urology follow-up within the next [address]
IMPRESSION:
No gross acute intracranial abnormality.
Left orbital globe slightly smaller in size than the right and marked increase attenuation of the vitreous of the left globe new in the interval since prior study. Findings could be the sequela of trauma including retinal detachment.
Head/Neck CTA
IMPRESSION:
Some calcific atherosclerotic plaque within the carotid arterial system bilaterally without hemodynamically significant stenosis, as detailed above.
No findings to suggest internal carotid artery or vertebral artery dissection bilaterally.
No significant proximal intracranial arterial abnormality bilaterally.
CXR
FINDINGS/impression:
Slightly diminished inspiration. This likely contributes to slight accentuation of bronchovascular markings. As far as visualized, no evidence of pneumonia or congestive heart failure. Mild cardiomegaly. No pneumothorax. No radiographic demonstrable
pleural effusion.
Shoulder Xray
IMPRESSION:
No acute fractures.
Old, internally fixated fracture of the left humerus.
Brain MRI
IMPRESSION:
No acute intracranial abnormality noted. Specifically, no acute infarct. Mild chronic senescent white matter changes.
Referrals:
Camacho Bangura MD [Active] - in one to two weeks
Kev Croft MD [Family Provider] -
Prescriptions:
New
atorvastatin 40 mg Tablet
40 mg PO QPM Qty: 30 0RF
metronidazole 500 mg Tablet
500 mg PO Q8H Qty: 9 0RF
levofloxacin 750 mg Tablet
750 mg PO Q24H Qty: 3 0RF
melatonin 5 mg Tablet
5 mg PO HS Qty: 10 0RF
Continued
insulin glargine [Lantus Solostar U-100 Insulin] 300 UNITS/3 ML insulin pen
35 units SC HS
pioglitazone 45 mg Tablet
45 mg PO DAILY
lisinopril 40 mg Tablet
40 mg PO DAILY
Januvia 100 mg tablet
100 mg PO DAILY
aspirin 81 mg Tablet,Delayed Release (Dr/Ec)
81 mg PO DAILY
Discharge Orders:
Discharge Patient (As Directed); Ordered 03/30/25
Ordered By: Edwin Graham
Discharge Date and Time
Print Language: LITHUANIAN
[2025-03-30 10:11] LABS: Blood Urea Nitrogen 16 mg/dl (7-17); Calcium 8.9 mg/dl (8.4-10.2); Carbon Dioxide 27 mmol/L (22-30); Chloride 100 mmol/L (98-107); Estimated Creatinine Clearance 51 ml/min; Glucose 123 mg/dl (70-99); Magnesium 1.7 mg/dl (1.6-2.3); Phosphorus 3.9 mg/dl (2.5-4.5); Potassium 3.8 mmol/L (3.5-5.1); Sodium 136 mmol/L (135-145); eGFR > 60.00
--- NOTE | 2025-03-30 10:25 | PTCARENOTE ---
Report finally given at 1020 am to [facility], pt ready for pick up attendant now at 1045 am
== END 2025-03-30 11:20 | DRG 871 ==
LOC: 3 WEST ACU 19:16
PROVIDERS: Registered Nurse; ADMITTING PHYSICIAN Internal Medicine; ATTENDING PHYSICIAN Hospitalist; CONSULT PHYSICIAN Psychiatry & Neurology Neurology; EMERGENCY PHYSICIAN Student in an Organized Health Care Education/Training Program; FAMILY PHYSICIAN Internal Medicine
DX: A41.9 Sepsis, unspecified organism (principal); G92.8 Other toxic encephalopathy; J69.0 Pneumonitis due to inhalation of food and vomit; I63.9 Cerebral infarction, unspecified; J18.9 Pneumonia, unspecified organism; N39.0 Urinary tract infection, site not specified; E87.1 Hypo-osmolality and hyponatremia; Z16.11 Resistance to penicillins; F05 Delirium due to known physiological condition; H51.0 Palsy (spasm) of conjugate gaze; E78.5 Hyperlipidemia, unspecified; E03.9 Hypothyroidism, unspecified; I10 Essential (primary) hypertension; M25.512 Pain in left shoulder; E53.8 Deficiency of other specified B group vitamins; E86.0 Dehydration; E87.8 Other disorders of electrolyte and fluid balance, not elsewhere classified; E11.9 Type 2 diabetes mellitus without complications; W01.0XXA Fall on same level from slipping, tripping and stumbling without subsequent striking against object, initial encounter; Y93.89 Activity, other specified; Y92.003 Bedroom of unspecified non-institutional (private) residence as the place of occurrence of the external cause; Z79.4 Long term (current) use of insulin; Z90.710 Acquired absence of both cervix and uterus; Z79.3 Long term (current) use of hormonal contraceptives; Z79.52 Long term (current) use of systemic steroids; Z88.5 Allergy status to narcotic agent; Z88.0 Allergy status to penicillin; Z79.82 Long term (current) use of aspirin; Z11.52 Encounter for screening for COVID-19; Z85.51 Personal history of malignant neoplasm of bladder; Z79.84 Long term (current) use of oral hypoglycemic drugs
CPT/HCPCS: 70450; 70496; 70498; 70551; 71045; 73030; 80048; 80053; 80061; 81003; 81015; 82607; 82728; 82746; 82962; 83036; 83605; 83735; 84100; 84439; 84443; 84484; 85025; 85027; 85610; 85730; 87040; 87077; 87086; 87186; 87502; 87811; 92526; 92610; 93005; 96374; 97163; 97167; 97530; 97535; 99285; Q9967

== ENCOUNTER 2025-05-25 07:57 | Emergency (ER) | payer MEDICARE, OTHER, SELFPAY ==
[2025-05-25] VITALS (7 sets, daily range): BP systolic 126–145; BP diastolic 63–106; BMI 30.9
--- NOTE | 2025-05-25 08:12 | ED.GENMED ---
History of Present Illness
General
Chief Complaint: Blood Sugar Problem
Time Seen by Provider: 05/25/25 07:59
History of Present Illness
History of Present Illness:
89-year-old female with history of insulin-dependent diabetes, hypertension, and hypothyroidism presents to the emergency department for evaluation of altered mental status and hypoglycemia. Reportedly awoke this morning with cold sweats and had a
blood sugar of 50. Was administered a D10 bolus on arrival with a repeat Accu-Chek of 128 on arrival. There is a recent reported change in her thyroid medications but she cannot provide any of the details of this immediately. Her last dose of
Lantus was last night, she did not have any insulin this morning, uncertain if she took any of her oral diabetic medications this morning as well. Currently denies any pain only feels cold
Past History
Past History
ED Past Medical History: HTN, NIDDM, Hypothyroidism and Other (Left eye retinal detachment)
ED Past Surgical History: Appendectomy, Gynecological (Hysterectomy and bilateral salpingo-oophorectomy) and Orthopedic (ORIF)
Social History
Tobacco: Non-smoker
Alcohol: None
Drug: None
Personal:
Living: with family
Employment: Retired
Family History
Family History: Other (reviewed and non-contributory)
Review of Systems
Review of Systems
Allergies reviewed?: Yes
All Other Systems: ROS reviewed and negative except as documented in HPI and ROS
Phy Exam
Physical Exam
Physical Exam:
GEN: Well appearing, NAD, WDWN
HEENT: Oral mucosa moist, no scleral icterus
Cardiac: Regular rate and rhythm
Lung: No respiratory distress, no tachypnea, lungs CTAB
MSK: No gross deformity or injuries
Skin: Good color, no pallor or jaundice, no rashes
Neuro: Alert, oriented x 2 with confusion to year, follows commands, moves all extremities freely, cranial nerves II through XII grossly intact
Psych: Calm, cooperative
Course
Orders/Labs/Results
Orders:
Orders
05/25/25 08:12
Electrocardiogram (*1) Urgent
Reason for Study: QTc Monitoring
EKG- Treatment ONCE
05/25/25 08:20
Complete Blood Count/No Diff Urgent
Free T4 Urgent
TSH Reflex To Free T4 Urgent
05/25/25 08:52
Basic Metabolic Panel Urgent
05/25/25 12:07
Electrocardiogram (*1) Urgent
Reason for Study: Abnormal EKG
EKG- Treatment ONCE
Abnormal Lab Results
05/25/25 05/25/25 05/25/25
08:15 08:20 08:52
WBC 4.6 L 10^3/uL
(4.8-10.8)
RBC 3.96 L 10^6/uL
(4.20-5.40)
Hct 34.9 L %
(37.0-47.0)
RDW 15.1 H %
(11.5-14.5)
MPV 12.2 H fL
(7.4-10.4)
Sodium 131 L mmol/L
(135-145)
BUN 22 H mg/dl
(7-17)
Glucose 65 L mg/dl
(70-99)
TSH (Reflex) 21.30 H uIU/ml
(0.47-4.68)
POC Glucose 301 H mg/dl
(70-99)
05/25/25 05/25/25 05/25/25
09:58 10:24 12:21
WBC
RBC
Hct
RDW
MPV
Sodium
BUN
Glucose
TSH (Reflex)
POC Glucose 53 L* mg/dl 59 L mg/dl 62 L mg/dl
(70-99) (70-99) (70-99)
05/25/25 08:20
05/25/25 08:52
Vital Signs
Initial and Last Documented VS:
Initial Vital Signs
Pulse Resp BP Pulse Ox
70 18 129/96 98
05/25/25 07:58 05/25/25 07:58 05/25/25 07:58 05/25/25 07:58
Last Documented Vital Signs
Temp Pulse Resp BP Pulse Ox
97.8 F 74 21 130/77 95
05/25/25 09:12 05/25/25 12:45 05/25/25 12:45 05/25/25 12:22 05/25/25 12:45
MDM/Problems Addressed
MDM/Problems Addressed:
Patient with recurrent hypoglycemia which may be related to her delayed administration of oral antihyperglycemic's last night. I offered admission for continued monitoring however patient and family are comfortable with taking her as she has
glucometer and a freestyle cristina to closely monitor her. They will withhold oral antihyperglycemic's today
*Pulse Oximetry
SaO2: 97
Oxygen Mode of Delivery: Room air
Patient hypoxic: no
*Critical Care Note
Total Time (30-74mins, 75-104mins- exclusive of procedures): Not Applicable
ED Attending Note
-
Portions of this chart may have been created with voice recognition software.� Occasional wrong word or��sound alike� substitutions may have occurred due to the inherent limitations of voice recognition software.
Discharge Plan
Departure
Patient Disposition: Home (Routine Discharge)
Date of Disposition: 05/25/25
Time of Disposition: 12:34
Patient with high blood pressure during this ER visit?: No
Discharge Problem:
Hypoglycemia
Instructions: Low blood sugar in people with diabetes
Prescriptions:
No Action
insulin glargine [Lantus Solostar U-100 Insulin] 300 UNITS/3 ML insulin pen
35 units SC HS
pioglitazone 45 mg Tablet
45 mg PO DAILY
lisinopril 40 mg Tablet
40 mg PO DAILY
Januvia 100 mg tablet
100 mg PO DAILY
aspirin 81 mg Tablet,Delayed Release (Dr/Ec)
81 mg PO DAILY
atorvastatin 40 mg Tablet
40 mg PO QPM Qty: 30 0RF
metronidazole 500 mg Tablet
500 mg PO Q8H Qty: 9 0RF
levofloxacin 750 mg Tablet
750 mg PO Q24H Qty: 3 0RF
melatonin 5 mg Tablet
5 mg PO HS Qty: 10 0RF
Referrals:
Kev Croft MD [Family Provider, Internal Medicine]
Activity Restrictions/Additional Instructions:
Monitor glucose closely today with cristina and fingerstick if needed. Do not administer oral diabetic medications today. If glucose is low in the evening, make sure to provide carbohydrates before giving Lantus.
Interventions
Interventions:
*Risk Screen - Suicide Last Done: 05/25/25 07:58
*General Assessment Last Done: 05/25/25 07:58
*Neglect/Abuse Screening Last Done: 05/25/25 07:58
*ED- Fall Risk Assessment Last Done: 05/25/25 07:58
*ED COVID-19 Vaccine History Last Done: 05/25/25 07:58
*Nursing Disposition Last Done: 05/25/25 13:09
ED- Neurological Assessment Last Done: 05/25/25 07:58
Discharge Date and Time
Discharge Date/Time: 05/25/25 13:09
Print Language: POLISH
[2025-05-25 08:16] LABS: Glucose - Point of Care 301 mg/dl (70-99)
[2025-05-25 08:40] LABS: Hematocrit 34.9 % (37.0-47.0); Hemoglobin 12.1 g/dL (12.0-16.0); Mean Corp Hgb Conc. 34.7 g/dL (33.0-37.0); Mean Corpuscular Volume 88.1 fL (81.0-99.0); Platelet Count 145 10^3/uL (130-400); Red Cell Dist. Width 15.1 % (11.5-14.5)
[2025-05-25 09:41] LABS: Blood Urea Nitrogen 22 mg/dl (7-17); Calcium 9.0 mg/dl (8.4-10.2); Carbon Dioxide 24 mmol/L (22-30); Chloride 102 mmol/L (98-107); Estimated Creatinine Clearance 67 ml/min; Glucose 65 mg/dl (70-99); Sodium 131 mmol/L (135-145); eGFR > 60.00
[2025-05-25 09:59] LABS: Glucose - Point of Care 53 mg/dl (70-99)
[2025-05-25 10:26] LABS: Glucose - Point of Care 59 mg/dl (70-99)
[2025-05-25 11:02] LABS: Glucose - Point of Care 84 mg/dl (70-99)
[2025-05-25 12:23] LABS: Glucose - Point of Care 62 mg/dl (70-99)
== END 2025-05-25 13:09 | disposition home or self-care (01) ==
LOC: EMR 07:57
PROVIDERS: Physician Assistant; EMERGENCY PHYSICIAN Student in an Organized Health Care Education/Training Program; FAMILY PHYSICIAN Internal Medicine
DX: E11.649 Type 2 diabetes mellitus with hypoglycemia without coma (principal); I10 Essential (primary) hypertension; E03.9 Hypothyroidism, unspecified
CPT/HCPCS: 99284; 80048; 82962; 84439; 84443; 85027; 93005